=== PATIENT | male | born 1995 | race Caucasian/White ===

== ENCOUNTER 2024-06-10 20:51 | Emergency (ER) | payer OTHER, SELFPAY ==
--- NOTE | ~2024-06-10 | CT_ITS ---
EXAMINATION: CT brain wo con DATE: 06/11/2024 00:02 INDICATION: New onset left-sided headache. TECHNIQUE: Computed tomography (CT) of the head was performed without intravenous contrast. Sagittal and coronal reconstructions were performed. The mA was adjusted according to patient size. Iterative reconstruction technique was employed. The dose-length product was 681.00 mGy-cm. COMPARISON: None FINDINGS: No acute intracranial hemorrhage, acute infarction or abnormal extra axial fluid collection. Ventricl es are normal and symmetric. No mass/mass effect. The orbits, paranasal sinuses and mastoid air cells are normal. IMPRESSION: 1. Normal head CT. Reviewed, dictated and finalized at location A. IMPRESSION: 1. Normal head CT.
[2024-06-10 21:02] VITALS: BP 166/98; PULSE 117; RESP 20; TEMP 37.4; O2SAT 98
[2024-06-11 00:09] VITALS: BP 150/104; PULSE 87; RESP 16; O2SAT 97
[2024-06-11] MEDS: ACETAMINOPHEN 500 MG TABLET 1000 MG PO (00:12)
[2024-06-11] MEDS: diphenhydrAMINE HCl INJ 50 MG/ML VIAL 25 MG IV PUSH (00:13)
[2024-06-11] MEDS: PROCHLORPERAZINE EDISYLATE 10 MG/2 ML VIAL IM (00:13)
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
--- NOTE | 2024-06-11 01:24 | ECG_ITS ---
Test Date: 2024-06-11 01:35:30 Measurements Intervals [place] Rate: 72 P: 69 DC: 143 QRS: 1 QRSD: 94 T: 17 QT: 390 QTc: 429 Interpretive Statements SINUS RHYTHM INCOMPLETE RIGHT BUNDLE BRANCH BLOCK BASELINE ARTIFACT I, III BORDERLINE ECG No previous ECG available for comparison Electronically Signed On 06-11-2024 07:54:46 CDT by Cali Jones D.O.
--- NOTE | 2024-06-11 01:24 | ED.GENADULT ---
HPI - General Adult General Chief complaint: Headache Stated complaint: L GAITAN, hard breathing, heart slowing? Time Seen by Provider: 06/10/24 23:43 History of Present Illness HPI narrative: This is a 28-year-old male presenting with chief of lightheadedness. Patient says work when he developed a left-sided headache that he described as an aching pain his left muslim. He then said that he felt lightheaded and kept staring off into space. He said he felt like his heart was racing very fast. This made him very nervous he came to the ER for evaluation. Patient denies any history of anxiety or panic attacks. He denies any visual changes or loss of consciousness. He does not have any neural deficits, double vision difficulty speaking swallowing or loss of coordination. No fevers chest pain difficulty breathing or abdominal pain. No jaw claudication. Related Data Allergies Allergy/AdvReac Type Severity Reaction Status Date / Time No Known Allergies Allergy Verified 06/10/24 20:52 Exam Narrative: APPEARANCE: No apparent distress. Head: atraumatic. No tenderness over the temporal artery EYES: EOMI, NOSE: Atraumatic NECK: Trachea midline RESPIRATORY: No increased rate of breathing clear to auscultation CARDIOVASCULAR: RRR, no peripheral edema ABDOMINAL: Non-distended soft nontender MUSCULOSKELETAl: No obvious deformities NEURO: Alert. Cranial nerves 2-12 grossly intact. Sensation light touch, motor function cerebellar function intact for 4 extremities. Gait exam was normal. SKIN:: Warm, dry. Normal color PSYCHIATRIC: Normal affect Course Vital Signs Vital signs: Vital Signs Temperature 99.3 F 06/10/24 21:02 Pulse Rate 117 H 06/10/24 21:02 Respiratory Rate 20 06/10/24 21:02 Blood Pressure 166/98 H 06/10/24 21:02 Pulse Oximetry 98 06/10/24 21:02 Oxygen Delivery Room Air 06/10/24 21:02 Temperature 99.3 F 06/10/24 21:02 Pulse Rate 87 06/11/24 00:09 Respiratory Rate 16 06/11/24 00:09 Blood Pressure 150/104 H 06/11/24 00:09 Pulse Oximetry 97 06/11/24 00:09 Oxygen Delivery Room Air 06/10/24 21:02 Medical Decision Making [facility] Narrative Medical decision making narrative: -Course: 28-year-old male presenting with headache and feeling funny. CT brain was obtained which was negative for bleed. His neurologic exam is normal. He was tachycardic in triage but his heart rate has normalized without interention. No clear etiology of patient's symptoms but no apparent life threats. Discussed follow-up with primary care physician and instructions return if he develops any new or worsening symptoms that may help elucidate the cause of his lightheadedness. -DDX includes but is not limited to: Headache, migraine, anxiety, panic attack, dysrhythmia, dehydration Vital Signs Vital Signs: Vital Signs Temperature 99.3 F 06/10/24 21:02 Pulse Rate 117 H 06/10/24 21:02 Respiratory Rate 20 06/10/24 21:02 Blood Pressure 166/98 H 06/10/24 21:02 Pulse Oximetry 98 06/10/24 21:02 Oxygen Delivery Room Air 06/10/24 21:02 Temperature 99.3 F 06/10/24 21:02 Pulse Rate 87 06/11/24 00:09 Respiratory Rate 16 06/11/24 00:09 Blood Pressure 150/104 H 06/11/24 00:09 Pulse Oximetry 97 06/11/24 00:09 Oxygen Delivery Room Air 06/10/24 21:02 Discharge Plan Discharge Clinical Impression: Headache, Dizziness and giddiness Patient Disposition: Home Condition: Stable Instructions: Antibiotic Form, Acute Headache (DC) Additional Instructions: You were seen emergency department for headache. Please use Motrin Tylenol for symptoms. Please follow-up with primary care physician listed below. If you develop any new or worsening symptoms return to the ED for re-evaluation. Patient Language: Hungarian Follow-up/Referrals: PHYSICIAN,HIGH ENERGY FORMING EQUIPMENT OPERATOR [Primary Care Provider] - Camilo Jansen MD [Physician] - 1 Week
[2024-06-11] MEDS: KETOROLAC 15 MG/ML VIAL (*BKC) IV PUSH (01:41)
[2024-06-11 02:26] VITALS: BP 132/86; PULSE 88; RESP 16; O2SAT 100
== END 2024-06-11 02:27 | disposition home or self-care (01) ==
PROVIDERS: Emergency Provider Emergency Medicine
DX: R42 Dizziness and giddiness (principal); R51.9 Headache, unspecified; I45.10 Unspecified right bundle-branch block
CPT/HCPCS: 70450; 93005; 96372; 96374; 99284; A9270; J0780; J1200; J1885

== ENCOUNTER 2024-08-29 12:22 | Emergency (ER) | payer OTHER, SELFPAY ==
--- NOTE | 2024-08-29 12:31 | ED_ITS ---
HPI - Abdominal Pain General Chief Complaint: Abdominal Pain Stated Complaint: Right Side Pain Time Seen by Provider: 08/29/24 12:40 Source: patient, RN notes reviewed and old records reviewed Mode of arrival: ambulatory Limitations: no limitations History of Present Illness HPI narrative: 29-year-old male presents to the [facility] with right upper quadrant abdominal pain that has worsened since Wednesday. Reports it is a dull pain 4-[address] Has had nausea without vomiting. Denies fevers. Patient reports that since his birthday he has had increase ETOH intake. States that his diet consists of Peralta's. Your treatment prior to arrival Onset (ago): day(s) (2) Treatments prior to arrival: other Related Data Home Medications ?Medication ?Instructions ?Recorded ?Confirmed ?Last Taken ?Type No Home Medications 08/29/24 08/29/24 Unknown History Allergies Allergy/AdvReac Type Severity Reaction Status Date / Time No Known Allergies Allergy Verified 08/29/24 12:36 Review of Systems Review of Systems: All systems reviewed & are unremarkable except as noted in HPI and below Constitutional: Constitutional: Reports no additional constitutional complaints Cardiovascular: Cardiovascular: Denies chest pain Respiratory: Respiratory: Reports no additional respiratory complaints, Denies chest congestion, Denies cough and Denies dyspnea Gastrointestinal: Gastrointestinal: Reports as per HPI, Reports abdominal pain (Right upper quadrant), Denies change in bowel habits, Denies diarrhea and Reports nausea Musculoskeletal: Musculoskeletal: Reports no additional musculoskeletal complaints PMFSH Comments At the time of my signature, I reviewed and agree with the nursing past medical, surgical, social, and family history. There is no relevant family history pertinent to the patient complaint. Exam Const: General: cooperative, healthy appearing, no acute distress, well developed, alert, uncomfortable and well nourished Nutritional Appearance: well nourished Orientation/consciousness: patient oriented x3 Limitations: no limitations HENMT: Head: normal to inspection Mouth: Yes Normal oral and palatal mucosa present, Yes lip normal, Yes tongue normal and Yes moist mucous membranes Eyes: General: appearance normal, both eyes and all related structures Alignment and Position: alignment normal Neck: Neck: normal visual inspection, full ROM, no lymphadenopathy and no meningeal signs Chest: Chest palpation & inspection: normal inspection of the chest Resp: Effort & Inspection: normal respiratory effort and able to speak in complete sentences Auscultation: clear to auscultation bilaterally, no crackles, no rales, no rhonchi and no wheezes Cardio: Rate: regular rate GI: GI Palp: Yes abdominal tenderness (Right upper quadrant), Yes Soft to palpation and No Guarding due to palpation present (GI) Auscultation: normal bowel sounds Skin: General skin exam: normal color and no rashes or lesions noted Neuro: General: patient oriented x3, gait normal, moves all extremities and no meningeal signs Cognition (Neuro): normal cognition Speech: normal speech Gait exam (Neuro): Normal gait present Extrem: General: normal to inspection, full ROM, capillary refill normal and normal gait Psych: Appearance: grossly normal and well kempt Mental Status: mental status grossly normal Speech and movement: Normal speech and movement present and Clear speech present Affect: normal affect Attitude: cooperative Course Course Level of Care: Express Care Visit Vital Signs Vital signs: Vital Signs Temperature 97.0 F L 08/29/24 12:33 Pulse Rate 111 H 08/29/24 12:33 Respiratory Rate 20 08/29/24 12:33 Blood Pressure 143/83 H 08/29/24 12:33 Pulse Oximetry 97 08/29/24 12:33 Oxygen Delivery Room Air 08/29/24 12:33 Temperature 97.0 F L 08/29/24 12:33 Pulse Rate 111 H 08/29/24 12:33 Respiratory Rate 20 08/29/24 12:33 Blood Pressure 143/83 H 08/29/24 12:33 Pulse Oximetry 97 08/29/24 12:33 Oxygen Delivery Room Air 08/29/24 12:33 Reviewed Transfer Transfered to: [place] Transportation: Other (POV states that his sister will drive him) Transfer rationale: Patient with right upper quadrant pain, very poor diet consisting of Peralta's, increased alcohol consumption. Sending to rule out cholecystitis Accepting physician: Spoke with Dr. Alexander MDM - Abdominal Pain MDM Narrative Medical decision making narrative: Patient sitting in exam room. Patient is nontoxic but appears uncomfortable. Patient with increasing right upper quadrant pain, nausea sending for higher level of care Transfer instructions reviewed with patient to go directly to the ER. Do not eat or drink until clear by ER provider. States that he will have a sister Dr. him All questions have been answered, and the patient deny any further question Some parts of this dictation were generated by voice recognition software and may contain typographical and/or grammatical inaccuracies. Differential Diagnosis Differential diagnosis: Likely abdominal pain, acute appendicitis, calculus of kidney, constipation, diverticulitis, gastroenteritis, pancreatitis and other (Cholecystitis, cholelithiasis, liver issues) Critical Care Time Critical Care Time Critical Care Time: No Discharge Plan Discharge Clinical Impression: Abdominal pain, acute, right upper quadrant Patient Disposition: Acute Care Hospital Condition: Stable Patient Language: Danish Prescriptions: No Action No Home Medications Follow-up/Referrals: PHYSICIAN,CAGE UNLOADER [Primary Care Provider] -
[2024-08-29 12:33] VITALS: BP 143/83; PULSE 111; RESP 20; TEMP 36.1; O2SAT 97
== END 2024-08-29 12:59 | disposition short-term general hospital (02) ==
LOC: EXPCOLL 12:26
PROVIDERS: Emergency Provider Nurse Practitioner
DX: R10.11 Right upper quadrant pain (principal)
CPT/HCPCS: 99212; G0463

== ENCOUNTER 2024-08-29 13:16 | Emergency (ER) | payer OTHER, SELFPAY ==
--- NOTE | ~2024-08-29 | CT_ITS ---
EXAMINATION: CT abdomen pelvis w con DATE: 08/29/2024 14:35 INDICATION: Right upper quadrant and epigastric pain TECHNIQUE: Computed tomography (CT) of the abdomen and pelvis was performed with 100 mL Omnipaque-350 intravenous contrast. Automated exposure control and iterative reconstruction technique were employe d. The dose-length product was 1222.32 mGy-cm. COMPARISON: None FINDINGS: Lung bases are clear. Heart size is normal. No pericardial or pleural effusion. Mild diffuse hepatic steatosis with focal sparing along the gallbladder fossa. Gallbladder, spleen, pancreas, bilateral ad renal glands and kidneys are normal. Bowels including the appendix are normal. Bladder and prostate a re unremarkable. No free intraperitoneal gas or fluid. No pathologically enlarged abdominal or pelvic lymphadenopathy. Mild lumbar and mild to moderate thoracic spondylosis with Schmorl's nodes as well as chronic appearing mild likely physiologic anterior wedging at L1 and L2. IMPRESSION: 1. No acute intra-abdominal/pelvic process. Reviewed, dictated and finalized at location A.
--- NOTE | ~2024-08-29 | US_ITS ---
Limited ABDOMINAL ULTRASOUND (Doppler ultrasound interrogation techniques used as needed for this exa m.) Ordering provider: Key Monge PA-C History: . ruq pain . Comparison: None. FINDINGS: PANCREAS: Normal echotexture and size. PORTAL VEIN: Hepatopedal flow demonstrated. LIVER: Normal size and increased echogenicity. No focal hepatic lesions or perihepatic fluid collecti ons are identified. BILIARY DUCTS: No intra or extrahepatic biliary dilation. Common bile duct measures 3.6 mm in diamete r which is normal for patient's age. GALLBLADDER: Normal. No stones, sludge, gallbladder wall thickening or pericholecystic fluid. Wall th ickness is 2.8 mm. Negative sonographic Lora's sign. FREE FLUID: None visualized within the upper abdomen. IMPRESSION: Fat infiltration of the liver. Otherwise, normal limited abdominal ultrasound. Reviewed, dictated and finalized at location A.
[2024-08-29 13:19] VITALS: BP 157/100; PULSE 104; RESP 16; O2SAT 98
[2024-08-29 13:50] LABS: Hematocrit 47.5 % (42.0-52.0); Hemoglobin 15.8 g/dL (14.0-18.0); Immature Granulocyte Percent A 0.7 % (0-0.5); Lymphocytes Absolute Auto 2.70 K/mm3 (0.9-3.2); Mean Corpuscular HGB Conc 33.3 g/dl (32-36); Mean Corpuscular Hemoglobin 29.1 pg (26-34); Mean Corpuscular Volume 87.5 fl (80-100); Nucleated Red Blood Cells Absolute Auto 0.000 K/mm3 (0.0-0.012); Nucleated Red Blood Cells Perc 0.0 % (0.0-0.2); Platelet Count Result 252 k/mm3 (150-375); Red Blood Count 5.43 M/mm3 (4.6-6.20); White Blood Count 12.9 K/mm3 (4.5-10.0)
[2024-08-29 13:52] LABS: Add Urine Microscopic? NO; Appearance Urine Clear (Clear); Glucose Urine UA Negative (Negative); Leukocyte Esterase Ur Negative LEU/UL (Negative); Nitrate Urine Negative (Negative); Specific Grav Ur 1.023 (1.001-1.035)
[2024-08-29 14:13] LABS: Alanine Aminotransferase 42 U/L (6-50); Albumin Level 4.4 g/dL (3.5-5.1); Alkaline Phosphatase 83 U/L (38-126); Anion Gap 10 mmol/L (4-12); Aspartate Amino Transferase 35 U/L (17-59); Bilirubin,Total 0.4 mg/dL (0.2-1.3); Blood Urea Nitrogen 11 mg/dL (9-20); Calcium 9.6 mg/dL (8.4-10.2); Carbon Dioxide 24 mmol/L (22-30); Chloride 106 mmol/L (98-107); Estimated CRCL calculation 139 ml/min; Estimated Glomerular Filt Rate > 60; Glucose 101 mg/dL (65-110); Lipase 45 U/L (23-300); Potassium 4.1 mmol/L (3.4-5.0); Sodium 140 mmol/L (137-145); Total Protein 7.9 g/dL (6.3-8.2)
--- NOTE | 2024-08-29 15:05 | ED.ABDPAIN ---
HPI - Abdominal Pain General Chief Complaint: Abdominal Pain Stated Complaint: Abdominal pain, nausea Time Seen by Provider: 08/29/24 13:34 Source: patient Mode of arrival: ambulatory Limitations: no limitations History of Present Illness HPI narrative: Patient is a 29-year-old male who presents the ED with report of right upper abdominal pain. Patient reports having pain throughout his right upper abdomen intermittently since Wednesday. Denies significant aggravating or relieving factors to the pain. Denies pain being worse with eating. Reports intermittent nausea, denies vomiting, diarrhea, constipation, fevers, shortness of breath. Has never had history of similar pain. Denies issues with gallbladder pancreas in the past. Does note that he has been a daily drinker recently, up to 12 drinks per day. Denies history of withdrawal symptoms or seizures. Related Data Allergies Allergy/AdvReac Type Severity Reaction Status Date / Time No Known Allergies Allergy Verified 08/29/24 15:30 Review of Systems Review of Systems: All systems reviewed & are unremarkable except as noted in HPI. All systems reviewed & are unremarkable except as noted in HPI and below Exam Narrative: GENERAL: Well appearing, obese with BMI of 36.4, non-toxic, in no acute distress. HEAD: Normocephalic, atraumatic. RESPIRATORY: Airway patent, respirations nonlabored. Clear to auscultation bilaterally, no rales, rhonchi, wheezing. CARDIOVASCULAR: Regular rate and rhythm without murmurs, rubs, or gallops. ABDOMINAL: Soft, mild TTP in epigastric region/epigastric region, nondistended. Normoactive BS. MUSCULOSKELETAL: Moves all extremities. No gross deformities. SKIN: Warm, dry, normal color. NEURO: A&O X3. Speech clear. Cranial nerves II-XII grossly intact. Steady gait. No ataxic movements. PSYCHIATRIC: Appropriate mood and affect. Normal interaction. Course Vital Signs Vital signs: Vital Signs Pulse Rate 104 H 08/29/24 13:19 Respiratory Rate 16 08/29/24 13:19 Blood Pressure 157/100 H 08/29/24 13:19 Pulse Oximetry 98 08/29/24 13:19 Pulse Rate 104 H 08/29/24 13:19 Respiratory Rate 16 08/29/24 13:19 Blood Pressure 157/100 H 08/29/24 13:19 Pulse Oximetry 98 08/29/24 13:19 MDM - Abdominal Pain MDM Narrative Medical decision making narrative: Patient presented to ED with several day history of right upper quadrant abdominal pain. History of recent daily alcohol use. Vital signs are stable upon arrival. Patient in no acute distress. Denies chest pains/shortness of breath. Denies drinking anything today. Cbc with minimally elevated white blood cell count of 12.9. CMP is completely unremarkable. Normal LFTs and lipase. UA is clear. CT scan of abdomen/pelvis was obtained and unremarkable. Right upper quadrant ultrasound was obtained and also unremarkable. Discussed lab and imaging findings, overall reassuring workup with patient. Discussed possibility of gastritis. Will start patient on PPI. Advised to limit alcohol use, discussed further dietary modifications. Will refer to GI for further evaluation as needed. Patient otherwise safe for discharge home at this time. Given strict return precautions. He is in agreement with plan. Discharged in stable condition. Medical Records Attestation: I reviewed the patient's medical records. Lab Data Attestation: I reviewed the patient's lab results. 08/29/24 13:43 08/29/24 13:42 Labs: Lab Results 08/29/24 08/29/24 Range/Units 13:42 13:43 WBC 12.9 H (4.5-10.0) K/mm3 RBC 5.43 (4.6-6.20) M/mm3 Hgb 15.8 (14.0-18.0) g/dL Hct 47.5 (42.0-52.0) % MCV 87.5 (80-100) fl MCH 29.1 (26-34) pg MCHC 33.3 (32-36) g/dl RDW 12.0 (11.5-14.5) % Plt Count 252 (150-375) k/mm3 MPV 10.6 H (7.4-10.4) fl Immature Gran % (Auto) 0.7 H (0-0.5) % Neut % (Auto) 70.3 (45.5-73.1) % Lymph % (Auto) 20.9 (18.3-44.2) % [place] % (Auto) 6.2 (2.6-8.5) % Eos % (Auto) 1.3 (0-4.4) % Baso % (Auto) 0.6 (0.2-1.2) % Lymph # (Auto) 2.70 (0.9-3.2) K/mm3 [place] # (Auto) 0.8 H (0.1-0.6) K/mm3 Eos # (Auto) 0.2 (0-0.3) K/mm3 Baso # (Auto) 0.1 (0.0-0.1) K/mm3 Abs Immat Gran (auto) 0.09 H (0.00-0.031) K/mm3 Absolute Neuts (auto) 9.1 H (1.3-6.7) K/mm3 Absolute Nucleated RBC 0.000 (0.0-0.012) K/mm3 Nucleated RBC % 0.0 (0.0-0.2) % Sodium 140 (137-145) mmol/L Potassium 4.1 (3.4-5.0) mmol/L Chloride 106 (98-107) mmol/L Carbon Dioxide 24 (22-30) mmol/L Anion Gap 10 (4-12) mmol/L BUN 11 (9-20) mg/dL Creatinine 0.92 (0.7-1.3) mg/dL Estim Creat Clear Calc 139 ml/min Estimated GFR > 60 (59 - ) Glucose 101 (65-110) mg/dL Calcium 9.6 (8.4-10.2) mg/dL Total Bilirubin 0.4 (0.2-1.3) mg/dL AST 35 (17-59) U/L ALT 42 (6-50) U/L Alkaline Phosphatase 83 (38-126) U/L Total Protein 7.9 (6.3-8.2) g/dL Albumin 4.4 (3.5-5.1) g/dL Lipase 45 (23-300) U/L Urine Color Yellow (Yellow) Urine Appearance Clear (Clear) Urine pH 5.5 (5.0-9.0) Ur Specific [place] 1.023 (1.001-1.035) Urine Protein Negative (Negative) mg/dL Urine Glucose (UA) Negative (Negative) mg/dL Urine Ketones Trace H (Negative) mg/dL Ur Blood (Man) Negative (Negative) Urine Nitrate Negative (Negative) Urine Bilirubin Negative (Negative) Urine Urobilinogen 1.0 (<2.0) mg/dL Leukocyte Esterase Rfl Negative (Negative) CULLEN/UL Imaging Data Attestation: I personally reviewed and interpreted this imaging study as follows: Radiologist's impression: ITS Impressions Abdomen/Pelvis CT 08/29/24 14:47 IMPRESSION: 1. No acute intra-abdominal/pelvic process. Abdomen Ultrasound 08/29/24 15:39 IMPRESSION: Fat infiltration of the liver. Otherwise, normal limited abdominal ultrasound. Discharge Plan Discharge Clinical Impression: Abdominal pain, right upper quadrant Gastritis Qualifiers: Gastritis type: unspecified gastritis Chronicity: acute Gastritis bleeding: without bleeding Qualified Code(s): K29.00 - Acute gastritis without bleeding Patient Disposition: Home Condition: Stable Instructions: Antibiotic Form, Gastritis (ED), Biliary Colic (ED), Diet for Stomach Ulcers and Gastritis (ED) Additional Instructions: Recommend taking Protonix daily for acid reflux depression. Limit alcohol use. Limit foods that are very greasy, spicy, acidic, fatty. Avoid eating food late at night or laying flat directly after eating. Follow-up with your primary care doctor and/or GI for further evaluation. Return to the ED if you experience worsening or severe pain, unable to keep down food or drink, chest pain, difficulty breathing, persistent fevers, or any other symptoms of concern. Patient Language: French Prescriptions: New pantoprazole [Protonix] 40 mg tablet,delayed release (DR/EC) 40 mg PO HS 28 Days Qty: 28 0RF Follow-up/Referrals: Joyce Crews DO [Physician] - (PRIMARY CARE) PHYSICIAN,ENTERTAINMENT MUSICIAN [Primary Care Provider] - Yoan Ayon MD [Physician] - (GI) Stand Alone Forms: Work/School Release IP Time of Disposition: 16:23
[2024-08-29] MEDS: FAMOTIDINE 20 MG/2 ML VIAL IV PUSH (15:20)
== END 2024-08-29 16:36 | disposition home or self-care (01) ==
PROVIDERS: Emergency Provider Physician Assistant
DX: K29.00 Acute gastritis without bleeding (principal); K76.0 Fatty (change of) liver, not elsewhere classified
CPT/HCPCS: 36415; 74177; 76705; 80053; 81003; 83690; 85025; 96374; 99284; Q9967

== ENCOUNTER 2024-11-08 21:00 | Inpatient (IN) | payer OTHER, SELFPAY ==
--- NOTE | ~2024-11-08 | CT_ITS ---
EXAMINATION: CT abdomen pelvis w con DATE: 11/08/2024 23:47 INDICATION: Perirectal abscess. TECHNIQUE: Computed tomography (CT) of the abdomen and pelvis was performed with 100 mL Omnipaque 350 intravenous contrast. Automated exposure control and iterative reconstruction technique were employed. The dose-length product was 1601.80 mGy-cm. COMPARISON: CT abdomen and pelvis 08/29/2024 FINDINGS: The visualized portions of the lung bases demonstrate mild atelectasis. No pleural effusion. The heart size is normal. No pericardial effusion. There is diffuse hepatic steatosis. The gallbladder, spleen, pancreas, adrenal glands, and kidneys are normal. There are no dilated loops of bowel. The appendix is normal. There are no pathologically enlarged lymph nodes. There is no free intraperitoneal fluid. In the superior intergluteal cleft, there is a 3.1 cm mass with central low attenuation measuring 1.7 x 1.5 x 2.2 cm and surrounding fat stranding. There is mild thoracic and lumbar spondylosis. IMPRESSION: 1. Subcutaneous mass in the superior aspect of the intergluteal cleft, consistent with phlegmon versus early abscess. Reviewed, dictated and finalized at location E. IMPRESSION: 1. Subcutaneous mass in the superior aspect of the intergluteal cleft, consiste nt with phlegmon versus early abscess.
[2024-11-08 21:06] VITALS: BP 139/79; PULSE 149; RESP 20; TEMP 36.7; O2SAT 97
[2024-11-08 21:56] VITALS: PULSE 118; RESP 18; O2SAT 95
--- NOTE | 2024-11-08 22:01 | ECG_ITS ---
Test Date: 2024-11-08 22:21:24 Measurements Intervals [place] Rate: 115 P: 32 DE: 141 QRS: 10 QRSD: 88 T: 10 QT: 303 QTc: 420 Interpretive Statements SINUS TACHYCARDIA POSSIBLE RIGHT VENTRICULAR CONDUCTION DELAY [RSR (QR) IN V1/V2] ABNORMAL RHYTHM ECG Electronically Signed On 11-09-2024 06:38:09 CDT by Gerardo Sandoval M.D.
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
[2024-11-08] MEDS: SODIUM CHLORIDE 0.9% IV 1,000 ML 999 ML IV CONT (22:14)
[2024-11-08] MEDS: HYDROmorphone HCL INJ (*CRX) 1 MG/ML SYR IV PUSH ×2 (22:15→23:30)
[2024-11-08 22:20] LABS: Hematocrit 41.7 % (42.0-52.0); Hemoglobin 13.8 g/dL (14.0-18.0); Immature Granulocyte Percent A 0.6 % (0-0.5); Lymphocytes Absolute Auto 2.69 K/mm3 (0.9-3.2); Mean Corpuscular HGB Conc 33.1 g/dl (32-36); Mean Corpuscular Hemoglobin 28.8 pg (26-34); Mean Corpuscular Volume 86.9 fl (80-100); Nucleated Red Blood Cells Absolute Auto 0.000 K/mm3 (0.0-0.012); Nucleated Red Blood Cells Perc 0.0 % (0.0-0.2); Platelet Count Result 256 k/mm3 (150-375); Red Blood Count 4.80 M/mm3 (4.6-6.20); White Blood Count 18.5 K/mm3 (4.5-10.0)
[2024-11-08 22:25] VITALS: BP 146/87; PULSE 115; RESP 19; O2SAT 94
[2024-11-08 22:31] LABS: INR 0.9; Prothrombin Time 12.6 Seconds (11.1-14.7)
[2024-11-08 22:32] LABS: Partial Thromboplastin Time 28.9 Seconds (22.3-36.8)
[2024-11-08 23:30] LABS: Alanine Aminotransferase 31 U/L (6-50); Albumin Level 4.0 g/dL (3.5-5.1); Alkaline Phosphatase 96 U/L (38-126); Anion Gap 9 mmol/L (4-12); Aspartate Amino Transferase 32 U/L (17-59); Bilirubin,Total 0.4 mg/dL (0.2-1.3); Blood Urea Nitrogen 13 mg/dL (9-20); CRP 4.1 mg/dL (<1.0); Calcium 8.8 mg/dL (8.4-10.2); Carbon Dioxide 23 mmol/L (22-30); Chloride 103 mmol/L (98-107); Estimated Glomerular Filt Rate > 60; Glucose 113 mg/dL (65-110); Potassium 4.1 mmol/L (3.4-5.0); Sodium 135 mmol/L (137-145); Total Protein 7.5 g/dL (6.3-8.2)
[2024-11-09] VITALS (15 sets, daily range): BP systolic 98–145; BP diastolic 53–86; PULSE 90–103; RESP 14–20; TEMP 36–37.1; O2SAT 93–99; BMI 33.1
[2024-11-09 00:17] LABS: Add Urine Microscopic? NO; Appearance Urine Clear (Clear); Glucose Urine UA Negative (Negative); Leukocyte Esterase Ur Negative LEU/UL (Negative); Nitrate Urine Negative (Negative); Specific Grav Ur 1.018 (1.001-1.035)
[2024-11-09] MEDS: SODIUM CHLORIDE 0.9% IV 1,000 ML 999 ML IV CONT ×2 (02:42→04:11)
[2024-11-09] MEDS: FOLIC ACID 1 MG/0.2 ML INJ IV PUSH (04:08)
[2024-11-09] MEDS: THIAMINE HCL 200 MG/2 ML VIAL 100 MG IV PUSH (04:09)
[2024-11-09] MEDS: HYDROmorphone HCL INJ (*CRX) 1 MG/ML SYR IV PUSH ×4 (04:23→19:26)
[2024-11-09] MEDS: metroNIDAZOLE 500 MG/ISO 100ML 500 MG/100 ML BAG 100 MG IVPB ×3 (05:06→21:18)
--- NOTE | 2024-11-09 06:03 | ADMGEN ---
This patient, Pratik Delgado, was admitted to [facility] Surg Room 315-01. Patient/family oriented to hospital policies and general routines including ID bracelet, bed and alarms, visiting hours, pain management, procedures, bathroom and other care routines, personal items, smoking policy, room service/diet, and visiting hours. Information on how to activate the Rapid Response Team has been discussed. Patient/Family are encouraged to report perceived risks to care and to ask questions if they do not understand what they are told or what they should do.
[2024-11-09] MEDS: CIPROFLOXACIN 400 MG/D5W 200ML 200 ML 200 MG IVPB ×2 (07:02→18:24)
--- NOTE | 2024-11-09 07:47 | P.HP_ITS ---
H&P: HPI History of Present Illness Date/Time: 11/09/24 07:47 Chief Complaint: Wound/Laceration Narrative: Pratik Delgado is a 29 year old male with a past medical history of pulmonary embolism who presents to the hospital for inflammation the gluteal cleft. Patient states Wednesday of this week, he started experiencing pain with palpation, swelling and redness to the upper aspect of gluteal cleft. He denies any major injuries to this region, but states that he has bumped it quite a few times over the past week. Denies any history of pilonidal cysts. Denies any fevers, chills, nausea/vomiting, chest pain, shortness a breath, abdominal pain, or urinary/bowel changes, however he does state that he feels warm but never took his temperature at home. Upon arrival to ED, patient was febrile and tachycardic but since admission, has not had an documented fevers or tachycardia. He also denies any numbness/tingling down either lower extremity, urinary/bowel incontinence or saddle anesthesia. I&D was attempted in the emergency department unsuccessfully. General surgery consulted upon admission for pilonidal cyst/abscess. ED workup: 36.7C, 149 HR, 20RR, 130/79, 97% on RA WBC 18.5, HGB 13.8, HCT 41.7. No major electrolyte abnormalities. CRP 4.1 UA: Low suspicion for infection Abdomen/pelvis CT: Subcutaneous mass in the superior aspect of the intergluteal cleft, consistent with phlegmon versus early abscess. Review of Systems Review of Systems: All systems reviewed & are unremarkable except as noted in HPI and below PMFSH Past Medical History Medical History History of pulmonary embolism Surgical History Surgical History History of surgery on lower extremity Social History Social History Smoking packs per day: 1 Smoking cigarettes per day: 20.0 Smoking status: Current every day smoker Tobacco type: cigarettes Alcohol intake: current Drinks per week: 40 Substance use: current Substance use type: marijuana Lack of Transportation: YES Lack of Food: Never True Current Housing: I Have Housing Concerned About Future Housing: No Difficulty Paying Gas/Electric Bills: No Difficulty Paying for Meds: YES Currently Unemployed: No Education: High School Diploma/GED Difficulty w/ Childcare or Family Care: No Spiritual care concerns: No Meds Home Medications and Allergies Home Medications ?Medication ?Instructions ?Recorded ?Confirmed ?Type pantoprazole 40 mg tablet,delayed 40 mg PO HS 4 weeks #28 tabs 08/29/24 11/09/24 Rx release (Protonix) Allergies Allergy/AdvReac Type Severity Reaction Status Date / Time No Known Allergies Allergy Verified 11/09/24 14:20 Vital Signs Vital Signs - 24 hr 11/08/24 21:06 11/08/24 21:56 11/08/24 22:25 Temperature 98.0 F Pulse Rate 149 H 118 H 115 H Respiratory Rate 20 18 19 Blood Pressure 139/79 146/87 H Pulse Oximetry 97 95 94 Oxygen Delivery Room Air 11/09/24 00:58 11/09/24 02:52 11/09/24 05:48 Temperature Pulse Rate 96 93 93 Respiratory Rate 19 20 20 Blood Pressure 145/80 H 118/62 118/62 Pulse Oximetry 94 96 96 Oxygen Delivery Exam Narrative: Gen - ill appearing male in no acute respiratory distress who is nontoxic- appearing lying semi recumbent in bed HEENT - normocephalic. Atraumatic. Pupils equal round and reactive. Extraocular motions intact. Sclera clear and anicteric. Nares patent. Oropharynx was clear. No facial asymmetry. Neck - neck was supple. No dominant adenopathy, thyromegaly or masses. Chest - lungs are clear to auscultation bilaterally. No wheezes or crackles. CV - heart was regular rate and rhythm. S1-S2. No murmurs gallops or rubs. Abd - abdomen was soft. Nontender. Nondistended. Positive bowel sounds. No organomegaly or masses. Ext - no clubbing, cyanosis or edema. 2+ DP pulses bilaterally. Neuro - patient is alert and oriented x4. Strength is 5/5 in both upper and lower extremities. Cranial nerves 2-12 are intact. Speech is clear. Psych - normal mood and affect. Patient is pleasant and cooperative. Skin - Large abscess in pilonidal region, erythematous and tender to palpation with induration, possible fluctuance near center. warm and dry. H&P: Results Labs Labs: Short CBC 11/08/24 Range/Units 22:07 WBC 18.5 H (4.5-10.0) K/mm3 Hgb 13.8 L (14.0-18.0) g/dL Hct 41.7 L (42.0-52.0) % Plt Count 256 (150-375) k/mm3 BMP 11/08/24 22:07 Sodium 135 L Potassium 4.1 Chloride 103 Carbon Dioxide 23 BUN 13 Creatinine 1.06 Glucose 113 H Calcium 8.8 Liver Function 11/08/24 Range/Units 22:07 Total Bilirubin 0.4 (0.2-1.3) mg/dL AST 32 (17-59) U/L ALT 31 (6-50) U/L Alkaline Phosphatase 96 (38-126) U/L Albumin 4.0 (3.5-5.1) g/dL Urine 11/09/24 Range/Units 00:10 Urine Color Yellow (Yellow) Urine Appearance Clear (Clear) Urine pH 6.5 (5.0-9.0) Ur Specific [place] 1.018 (1.001-1.035) Urine Protein Negative (Negative) mg/dL Urine Glucose (UA) Negative (Negative) mg/dL Assessment and Plan Assessment and plan (1) Sepsis: Code(s): A41.9 - Sepsis, unspecified organism Status: Acute Assessment and Plan: * Meets SIRS criteria: Fever, tachycardia, suspected infection, leukocytosis * lactic acid: 1.1 * suspected source: Pilonidal cyst/abscess * blood cultures drawn on 11/08, pending * UA: Not indicative of infection * Urine culture not obtained * Abdomen/pelvis CT: A subcutaneous mass in the superior aspect of the intergluteal cleft, consistent with phlegmon versus early abscess * Initially started on ciprofloxacin and metronidazole, also was started on vancomycin but discontinued (2) Pilonidal cyst with abscess: Code(s): L05.01 - Pilonidal cyst with abscess Status: Acute Assessment and Plan: * See above * Started on Tuesday 11/07 after bumped it several times on various surroundings * Abdomen/pelvis CT: A subcutaneous mass in the superior aspect of the intergluteal cleft, consistent with phlegmon versus early abscess * Difficult to examine given patient's inability to allow for proper examination * Unable to tolerate bedside I and D in the emergency department * General surgery consulted * Incision and drainage of pilonidal cyst in the OR with sedation * Continue IV antibiotics preoperatively and keep NPO until surgery * Maintenance fluids while NPO * Will likely require packing of wound postoperatively Quality VTE Prophylaxis VTE prophylaxis: mechanical ordered
[2024-11-09 08:57] LABS: Alanine Aminotransferase 25 U/L (6-50); Albumin Level 3.5 g/dL (3.5-5.1); Alkaline Phosphatase 91 U/L (38-126); Anion Gap 7 mmol/L (4-12); Aspartate Amino Transferase 27 U/L (17-59); Bilirubin,Total 0.5 mg/dL (0.2-1.3); Blood Urea Nitrogen 13 mg/dL (9-20); Calcium 8.1 mg/dL (8.4-10.2); Carbon Dioxide 21 mmol/L (22-30); Chloride 105 mmol/L (98-107); Estimated CRCL calculation 135 ml/min; Estimated Glomerular Filt Rate > 60; Glucose 105 mg/dL (65-110); Potassium 4.1 mmol/L (3.4-5.0); Sodium 133 mmol/L (137-145); Total Protein 6.7 g/dL (6.3-8.2)
[2024-11-09 08:58] LABS: Hematocrit 41.2 % (42.0-52.0); Hemoglobin 13.2 g/dL (14.0-18.0); Immature Granulocyte Percent A 0.6 % (0-0.5); Lymphocytes Absolute Auto 2.18 K/mm3 (0.9-3.2); Mean Corpuscular HGB Conc 32.0 g/dl (32-36); Mean Corpuscular Hemoglobin 28.2 pg (26-34); Mean Corpuscular Volume 88.0 fl (80-100); Nucleated Red Blood Cells Absolute Auto 0.000 K/mm3 (0.0-0.012); Nucleated Red Blood Cells Perc 0.0 % (0.0-0.2); Platelet Count Result 222 k/mm3 (150-375); Red Blood Count 4.68 M/mm3 (4.6-6.20); White Blood Count 15.9 K/mm3 (4.5-10.0)
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
[2024-11-09] MEDS: LACTATED RINGERS 1,000 ML 100 ML IV CONT (10:31)
[2024-11-09] MEDS: LACTATED RINGERS 1,000 ML 30 ML IV CONT (14:10)
--- NOTE | 2024-11-09 14:29 | P.PNAN_ITS ---
Anes - Initial Pre Proc Eval Procedure: Operation Date: 11/09/24 15:00 Proposed Procedures p Incision and Drainage Pilonidal Cyst - Murray Segovia MD Date/Time: 11/09/24 14:29 Surgeon: Jasmyne Agudelo DO Pre Op Diagnosis: Gluteal abscess Patient Data Age: 29 Gender: M Height: 1.83 m Weight: 110.9 kg Last Vital Signs Temp 98.8 F 11/09/24 13:45 Pulse 103 H 11/09/24 13:45 Resp 18 11/09/24 13:45 BP 128/86 11/09/24 13:45 Pulse Ox 97 11/09/24 13:45 O2 Del Method Room Air 11/09/24 13:45 Allergies Allergy/AdvReac Type Severity Reaction Status Date / Time No Known Allergies Allergy Verified 11/09/24 14:20 Home Medications ?Medication ?Instructions ?Recorded ?Confirmed ?Type pantoprazole 40 mg tablet,delayed 40 mg PO HS 4 weeks #28 tabs 08/29/24 11/09/24 Rx release (Protonix) Laboratory Tests 11/08/24 11/09/24 11/09/24 22:07 00:10 04:48 WBC 18.5 H K/mm3 (4.5-10.0) RBC 4.80 M/mm3 (4.6-6.20) Hgb 13.8 L g/dL (14.0-18.0) Hct 41.7 L % (42.0-52.0) MCV 86.9 fl (80-100) MCH 28.8 pg (26-34) MCHC 33.1 g/dl (32-36) RDW 11.9 % (11.5-14.5) Plt Count 256 k/mm3 (150-375) MPV 10.3 fl (7.4-10.4) Immature Gran % (Auto) 0.6 H % (0-0.5) Neut % (Auto) 76.7 H % (45.5-73.1) Lymph % (Auto) 14.5 L % (18.3-44.2) [place] % (Auto) 6.8 % (2.6-8.5) Eos % (Auto) 0.9 % (0-4.4) Baso % (Auto) 0.5 % (0.2-1.2) Lymph # (Auto) 2.69 K/mm3 (0.9-3.2) [place] # (Auto) 1.3 H K/mm3 (0.1-0.6) Eos # (Auto) 0.2 K/mm3 (0-0.3) Baso # (Auto) 0.1 K/mm3 (0.0-0.1) Abs Immat Gran (auto) 0.11 H K/mm3 (0.00-0.031) Absolute Neuts (auto) 14.2 H K/mm3 (1.3-6.7) Absolute Nucleated RBC 0.000 K/mm3 (0.0-0.012) Nucleated RBC % 0.0 % (0.0-0.2) PT 12.6 Seconds (11.1-14.7) INR 0.9 APTT 28.9 Seconds (22.3-36.8) Sodium 135 L mmol/L 133 L mmol/L (137-145) (137-145) Potassium 4.1 mmol/L 4.1 mmol/L (3.4-5.0) (3.4-5.0) Chloride 103 mmol/L 105 mmol/L (98-107) (98-107) Carbon Dioxide 23 mmol/L 21 L mmol/L (22-30) (22-30) Anion Gap 9 mmol/L 7 mmol/L (4-12) (4-12) BUN 13 mg/dL 13 mg/dL (9-20) (9-20) Creatinine 1.06 mg/dL 0.90 mg/dL (0.7-1.3) (0.7-1.3) Estim Creat Clear Calc Not Reportable 135 ml/min Estimated GFR > 60 > 60 (59 - ) (59 - ) Glucose 113 H mg/dL 105 mg/dL (65-110) (65-110) Lactic Acid 1.1 mmol/L (0.7-2.0) Calcium 8.8 mg/dL 8.1 L mg/dL (8.4-10.2) (8.4-10.2) Total Bilirubin 0.4 mg/dL 0.5 mg/dL (0.2-1.3) (0.2-1.3) AST 32 U/L 27 U/L (17-59) (17-59) ALT 31 U/L 25 U/L (6-50) (6-50) Alkaline Phosphatase 96 U/L 91 U/L (38-126) (38-126) C-Reactive Protein 4.1 H mg/dL (<1.0) Total Protein 7.5 g/dL 6.7 g/dL (6.3-8.2) (6.3-8.2) Albumin 4.0 g/dL 3.5 g/dL (3.5-5.1) (3.5-5.1) Urine Color Yellow (Yellow) Urine Appearance Clear (Clear) Urine pH 6.5 (5.0-9.0) Ur Specific [place] 1.018 (1.001-1.035) Urine Protein Negative mg/dL (Negative) Urine Glucose (UA) Negative mg/dL (Negative) Urine Ketones Negative mg/dL (Negative) Ur Blood (Man) Negative (Negative) Urine Nitrate Negative (Negative) Urine Bilirubin Negative (Negative) Urine Urobilinogen 1.0 mg/dL (<2.0) Leukocyte Esterase Rfl Negative CULLEN/UL (Negative) Ethyl Alcohol < 10 mg/dL (<10) 11/09/24 08:35 WBC 15.9 H K/mm3 (4.5-10.0) RBC 4.68 M/mm3 (4.6-6.20) Hgb 13.2 L g/dL (14.0-18.0) Hct 41.2 L % (42.0-52.0) MCV 88.0 fl (80-100) MCH 28.2 pg (26-34) MCHC 32.0 g/dl (32-36) RDW 11.9 % (11.5-14.5) Plt Count 222 k/mm3 (150-375) MPV 10.4 fl (7.4-10.4) Immature Gran % (Auto) 0.6 H % (0-0.5) Neut % (Auto) 76.1 H % (45.5-73.1) Lymph % (Auto) 13.7 L % (18.3-44.2) [place] % (Auto) 8.3 % (2.6-8.5) Eos % (Auto) 0.9 % (0-4.4) Baso % (Auto) 0.4 % (0.2-1.2) Lymph # (Auto) 2.18 K/mm3 (0.9-3.2) [place] # (Auto) 1.3 H K/mm3 (0.1-0.6) Eos # (Auto) 0.2 K/mm3 (0-0.3) Baso # (Auto) 0.1 K/mm3 (0.0-0.1) Abs Immat Gran (auto) 0.10 H K/mm3 (0.00-0.031) Absolute Neuts (auto) 12.1 H K/mm3 (1.3-6.7) Absolute Nucleated RBC 0.000 K/mm3 (0.0-0.012) Nucleated RBC % 0.0 % (0.0-0.2) PT INR APTT Sodium Potassium Chloride Carbon Dioxide Anion Gap BUN Creatinine Estim Creat Clear Calc Estimated GFR Glucose Lactic Acid Calcium Total Bilirubin AST ALT Alkaline Phosphatase C-Reactive Protein Total Protein Albumin Urine Color Urine Appearance Urine pH Ur Specific [place] Urine Protein Urine Glucose (UA) Urine Ketones Ur Blood (Man) Urine Nitrate Urine Bilirubin Urine Urobilinogen Leukocyte Esterase Rfl Ethyl Alcohol Patient hx anesthesia problems: none Family hx anesthesia problems: none Results Review: All pre-operative results and documents have been reviewed as part of the pre- operative evaluation. [facility] Past Medical History Medical History History of pulmonary embolism Surgical History Surgical History History of surgery on lower extremity Social History Social History Smoking packs per day: 1 Smoking cigarettes per day: 20.0 Smoking status: Current every day smoker Tobacco type: cigarettes Alcohol intake: current Drinks per week: 40 Substance use: current Substance use type: marijuana Lack of Transportation: YES Lack of Food: Never True Current Housing: I Have Housing Concerned About Future Housing: No Difficulty Paying Gas/Electric Bills: No Difficulty Paying for Meds: YES Currently Unemployed: No Education: High School Diploma/GED Difficulty w/ Childcare or Family Care: No Spiritual care concerns: No Anes - Eval Final PreProcedure Day of Procedure 11/09/24 14:29 Patient weight: obese Heart: regular rate and rhythm Lungs: clear to auscultation Airway: Mallampati scale class II Neurological: alert and oriented Last oral intake: >/= 8 hours ASA classification: III Emergent: no Anesthetic plan: proceed Anesthesia type and monitoring: general ETT and standard monitoring Results Review: All pre-operative results and documents have been reviewed as part of the pre- operative evaluation. Informed Consent: The patient's anesthetic plan and its attendant risks and benefits were discussed with the patient/family/POA. Questions were solicited and answers provided to the satisfaction of the patient/family/POA.
--- NOTE | 2024-11-09 15:00 | WPDHPUPDATE1 ---
History and Physical Update Update Date/Time: 11/09/24 15:00 History and Physical has been reviewed, including an updated exam of the patient. There are NO changes in the patient's condition. Risks, benefits, and alternatives have been discussed and questions answered. Patient agrees to proceed with procedure.
[2024-11-09] MEDS: LIDO 1%/EPINEPHRINE 1:100,000 20 ML VIAL 15 ML INFILTRATE (15:37)
--- NOTE | 2024-11-09 16:08 | W.PM.PROC2 ---
Procedure Note - Detailed Date of Procedure 11/09/24 Pre-op Diagnosis Pilonidal cyst abscess Post-op Diagnosis Same Procedure Performed Incision and drainage of pilonidal cyst abscess Surgeon Murray Segovia MD Anesthesia General Indications Patient is a 29-year-old white male presented to the emergency room with complaints of several day history of worsening pain in the upper midline gluteal cleft region. White blood cell count was elevated around 18,000 and he was mildly febrile. CT scan abdomen pelvis was performed showing a 2 to 3 cm abscess over the tip of the coccyx in the upper midline gluteal cleft region. He appeared to have an infected pilonidal cyst. An attempt was made to try to drain it in the emergency room under local anesthetic by the emergency room providers. This was unsuccessful as the patient cannot tolerate the drainage under local anesthetic. He is being brought in for now to incise and drain the pilonidal cyst abscess under a general anesthetic. Findings In the upper midline gluteal cleft there was a fluctuant area in the midline. After making incision longitudinally in the cleft approximately 20cc of pus drained from a 3cm abscess. Digital exploration of my finger revealed no loculations. Cultures of the abscess cavity were obtained and sent to microbiology Description of Procedure After informed consent was obtained patient brought to the operating room was placed supine on the operating table. He was then placed under general LMA anesthesia. We then turned him onto the right lateral decubitus position on operating table taking care to make sure all the pressure points well padded and he was well secured in that position on the table. The medial buttock, lower back, and midline gluteal cleft region was then shaved and then prepped draped usual sterile fashion. In a fluctuant area just at the top portion of the upper midline gluteal cleft I made a longitudinal incision with a #11 scalpel. The length of the incision was approximately 3cm. Once I incised into the abscess cavity approximate 20cc of bloody purulent fluid drained from the abscess. I then placed my index finger into the abscess cavity and digitally explored the cavity and did not tend to track in any direction by any significant distance. No loculations were noted. I then obtained a culture stick and sent to microbiology for anaerobic, aerobic, and Gram stain. I then irrigated out the abscess cavity with about 2 in 50cc of sterile saline solution. Hemostasis on the skin edges was then achieved electrocautery. I then packed the wound and abscess cavity tightly with quarter-inch iodoform gauze. Approximate 3 yd of gauze was used. I then injected [id number] of 1% lidocaine mixed with 0.5% Marcaine with epinephrine around the wound for postoperative pain relief. There was then cleaned and then sterile dressing was applied. The patient tolerated the procedure well no complications. All sponges, needles, and instrument counts were correct at the end procedure. EBL was _25__cc. The patient was awakened and taken to recovery in stable and satisfactory condition. Implants None Estimated Blood Loss 25 Urine Output 400 Drains No Packing Yes (Quarter-inch iodoform gauze pilonidal cyst abscess) Pathology Other (Culture of abscess cavity sent to microbiology for aerobic, anaerobic, and Gram stain.) Complications No immediate complications Condition Stable Disposition PACU [facility] Billing Surgery - Charge Forward: Surgery Billing
[2024-11-09] MEDS: NICOTINE (*PBKC) 4 MG GUM PO (20:10)
[2024-11-09] MEDS: HYDROcodone/acetaminophen (*CRX) 5-325 MG TABLET 1 TAB PO (21:18)
[2024-11-10 00:15] VITALS: BP 133/70; PULSE 88; RESP 14; TEMP 36.4; O2SAT 98
[2024-11-10] MEDS: HYDROmorphone HCL INJ (*CRX) 1 MG/ML SYR IV PUSH ×7 (00:40→21:58)
[2024-11-10] MEDS: NICOTINE (*PBKC) 4 MG GUM PO ×6 (00:41→18:19)
[2024-11-10 04:00] VITALS: BP 112/70; PULSE 88; RESP 16; TEMP 36.4; O2SAT 97
[2024-11-10] MEDS: metroNIDAZOLE 500 MG/ISO 100ML 500 MG/100 ML BAG 100 MG IVPB ×3 (05:33→22:09)
[2024-11-10 06:15] LABS: Hematocrit 42.5 % (42.0-52.0); Hemoglobin 13.7 g/dL (14.0-18.0); Immature Granulocyte Percent A 0.8 % (0-0.5); Lymphocytes Absolute Auto 1.33 K/mm3 (0.9-3.2); Mean Corpuscular HGB Conc 32.2 g/dl (32-36); Mean Corpuscular Hemoglobin 28.8 pg (26-34); Mean Corpuscular Volume 89.5 fl (80-100); Nucleated Red Blood Cells Absolute Auto 0.000 K/mm3 (0.0-0.012); Nucleated Red Blood Cells Perc 0.0 % (0.0-0.2); Platelet Count Result 246 k/mm3 (150-375); Red Blood Count 4.75 M/mm3 (4.6-6.20); White Blood Count 16.9 K/mm3 (4.5-10.0)
[2024-11-10] MEDS: CIPROFLOXACIN 400 MG/D5W 200ML 200 ML 200 MG IVPB ×2 (06:38→18:10)
[2024-11-10 06:40] LABS: Alanine Aminotransferase 26 U/L (6-50); Albumin Level 3.9 g/dL (3.5-5.1); Alkaline Phosphatase 95 U/L (38-126); Anion Gap 5 mmol/L (4-12); Aspartate Amino Transferase 26 U/L (17-59); Bilirubin,Total 0.3 mg/dL (0.2-1.3); Blood Urea Nitrogen 14 mg/dL (9-20); Calcium 8.7 mg/dL (8.4-10.2); Carbon Dioxide 26 mmol/L (22-30); Chloride 104 mmol/L (98-107); Estimated CRCL calculation 141 ml/min; Estimated Glomerular Filt Rate > 60; Glucose 121 mg/dL (65-110); Potassium 4.8 mmol/L (3.4-5.0); Sodium 135 mmol/L (137-145); Total Protein 7.5 g/dL (6.3-8.2)
--- NOTE | 2024-11-10 07:41 | P.PNIM_ITS ---
Progress Note: A&P Assessment and Plan (1) Sepsis: Code(s): A41.9 - Sepsis, unspecified organism Status: Acute Assessment and Plan: * Meets SIRS criteria: Fever, tachycardia, suspected infection, leukocytosis * lactic acid: 1.1 * suspected source: Pilonidal cyst/abscess * blood cultures drawn on 11/08, pending * UA: Not indicative of infection * Urine culture not obtained * Abdomen/pelvis CT: A subcutaneous mass in the superior aspect of the intergluteal cleft, consistent with phlegmon versus early abscess * Initially started on ciprofloxacin and metronidazole, also was started on vancomycin but discontinued * Continue IV antibiotics * discuss with ID pharmacist regarding discharge medications * 11/10: Leukocytosis slight worse today, likely reactive from surgery (2) Pilonidal cyst with abscess: Code(s): L05.01 - Pilonidal cyst with abscess Status: Acute Assessment and Plan: * See above * Started on Tuesday 11/07 after bumped it several times on various surroundings * Abdomen/pelvis CT: A subcutaneous mass in the superior aspect of the intergluteal cleft, consistent with phlegmon versus early abscess * Difficult to examine given patient's inability to allow for proper examination * Unable to tolerate bedside I and D in the emergency department * General surgery consulted * POD 11/09 I&D pilonidal cyst abscess * Keep dressing clean, dry * Packing to be removed today per Gen surg * Wound culture pending Subjective Date/time seen: 11/10/24 07:41 Interval history: 29 year old male with a past medical history of pulmonary embolism who presents to the hospital for inflammation the gluteal cleft. Patient states Wednesday of this week, he started experiencing pain with palpation, swelling and redness to the upper aspect of gluteal cleft. 11/10/2024 Patient sitting uncomfortably in bed at time of exam. POD 11/09 pilonidal abscess drainage. Pt endorses significant amount of pain at surgical site area since surgery. Remains afebrile, however leukocytosis slightly worse today than yesterday, likely reactive from surgery. Wound culture obtained, pending. Will have dressing changed/replaced by surgery today, continue prn pain control. Review of Systems Review of Systems: All systems reviewed & are unremarkable except as noted in HPI and below Exam Narrative: Gen - ill appearing male in no acute respiratory distress who is nontoxic- appearing lying semi recumbent in bed HEENT - normocephalic. Atraumatic. Pupils equal round and reactive. Extraocular motions intact. Sclera clear and anicteric. Nares patent. Oropharynx was clear. No facial asymmetry. Neck - neck was supple. No dominant adenopathy, thyromegaly or masses. Chest - lungs are clear to auscultation bilaterally. No wheezes or crackles. CV - heart was regular rate and rhythm. S1-S2. No murmurs gallops or rubs. Abd - abdomen was soft. Nontender. Nondistended. Positive bowel sounds. No organomegaly or masses. Ext - no clubbing, cyanosis or edema. 2+ DP pulses bilaterally. Neuro - patient is alert and oriented x4. Strength is 5/5 in both upper and lower extremities. Cranial nerves 2-12 are intact. Speech is clear. Psych - normal mood and affect. Patient is pleasant and cooperative. Skin - Large abscess in pilonidal region drained, dressing clean and dry, still very tender to palpation. Dressing to be replaced by general surgery Objective Data Vital Signs Vital Signs: Vital Signs - 24 hr 11/09/24 13:45 11/09/24 15:48 11/09/24 16:00 Temperature 98.8 F 97.8 F Pulse Rate 103 H 95 96 Respiratory Rate 18 16 16 Blood Pressure 128/86 98/53 L 102/54 L Pulse Oximetry 97 95 95 Oxygen Delivery Room Air Simple Face Mask Simple Face Mask Oxygen Flow Rate 12 12 11/09/24 16:15 11/09/24 16:30 11/09/24 16:45 Temperature Pulse Rate 93 103 H 101 H Respiratory Rate 16 18 18 Blood Pressure 109/60 105/76 131/80 Pulse Oximetry 96 99 93 Oxygen Delivery Simple Face Mask Simple Face Mask Room Air Oxygen Flow Rate 12 12 11/09/24 17:00 11/09/24 17:15 11/09/24 18:40 Temperature 96.8 F L Pulse Rate 94 91 90 Respiratory Rate 16 16 17 Blood Pressure 124/73 126/70 119/71 Pulse Oximetry 94 94 94 Oxygen Delivery Room Air Nasal Cannula Oxygen Flow Rate 2 11/09/24 18:45 11/09/24 20:00 11/09/24 20:25 Temperature 97.1 F L Pulse Rate 101 H 92 Respiratory Rate 14 Blood Pressure 125/70 135/83 Pulse Oximetry 95 Oxygen Delivery Room Air Oxygen Flow Rate 11/09/24 21:47 11/10/24 00:15 11/10/24 04:00 Temperature 97.6 F 97.6 F Pulse Rate 88 88 Respiratory Rate 14 16 Blood Pressure 133/70 112/70 Pulse Oximetry 95 98 97 Oxygen Delivery Room Air Oxygen Flow Rate Intake/Output Intake/Output: Intake & Output 11/07/24 11/08/24 11/09/24 11/10/24 23:59 23:59 23:59 23:59 Intake Total 1000 1340 590 Output Total 2450 350 Balance 1000 -1110 240 Meds/Results Medications: Active Medications Generic Name Dose Route Start Last Admin Trade Name Freq PRN Reason Stop Dose Admin Acetaminophen 650 mg 11/09/24 03:57 Acetaminophen 325 Mg Tablet PO Q4H PRN Mild Pain (1-3) or Fever Hydrocodone Bitart/Acetaminophen 1 tab 11/09/24 03:57 11/09/24 21:18 Hydrocodone/Acetaminophen (*Crx) 5-325 Mg Tablet PO 1 tab Q4H PRN Administration Pain Rated 4-6 Folic Acid 1 mg 11/09/24 03:00 11/09/24 04:08 Folic Acid 1 Mg/0.2 Ml Inj IV PUSH 1 mg DAILY NUHA Administration Hydromorphone HCl 1 mg 11/09/24 07:51 11/10/24 04:51 Hydromorphone Hcl Inj (*Crx) 1 Mg/Ml Syr IV PUSH 1 mg Q3H PRN Administration Pain Rated 7-10 Ciprofloxacin/Dextrose 200 mls @ 200 mls/hr 11/09/24 06:00 11/10/24 06:38 Cipro 400 Mg/D5w 200 Ml IVPB 200 mls/hr Q12H NUHA Administration Metronidazole 500 mg in 100 mls @ 100 mls/hr 11/09/24 11:00 11/10/24 05:33 Flagyl 500 Mg/Iso Soln 100 Ml IVPB 100 mls/hr Q8HR NUHA Administration Lactated Ringer's 1,000 mls @ 30 mls/hr 11/09/24 14:30 11/09/24 17:42 Lr - Lactated Ringers Iv IV CONT Not Given .Q24H NUHA Nicotine Polacrilex 4 mg 11/09/24 18:47 11/10/24 06:37 Nicotine (*Pbkc) 4 Mg Gum PO 4 mg PRN PRN Administration Nicotine Cravings Ondansetron HCl 4 mg 11/09/24 03:57 Ondansetron Inj 4 Mg/2 Ml Vial IV PUSH Q4H PRN Nausea Radiology Results: ITS Impressions Abdomen/Pelvis CT 11/09/24 08:26 IMPRESSION: 1. Subcutaneous mass in the superior aspect of the intergluteal cleft, consistent with phlegmon versus early abscess. Labs Labs: Laboratory Results - last 24 hr 11/09/24 11/09/24 11/10/24 04:48 08:35 05:32 WBC 15.9 H 16.9 H RBC 4.68 4.75 Hgb 13.2 L 13.7 L Hct 41.2 L 42.5 MCV 88.0 89.5 MCH 28.2 28.8 MCHC 32.0 32.2 RDW 11.9 11.8 Plt Count 222 246 MPV 10.4 10.4 Immature Gran % (Auto) 0.6 H 0.8 H Neut % (Auto) 76.1 H 85.2 H Lymph % (Auto) 13.7 L 7.9 L [place] % (Auto) 8.3 5.8 Eos % (Auto) 0.9 0.0 Baso % (Auto) 0.4 0.3 Lymph # (Auto) 2.18 1.33 [place] # (Auto) 1.3 H 1.0 H Eos # (Auto) 0.2 0.0 Baso # (Auto) 0.1 0.1 Abs Immat Gran (auto) 0.10 H 0.14 H Absolute Neuts (auto) 12.1 H 14.4 H Absolute Nucleated RBC 0.000 0.000 Nucleated RBC % 0.0 0.0 Sodium 133 L 135 L Potassium 4.1 4.8 Chloride 105 104 Carbon Dioxide 21 L 26 Anion Gap 7 5 BUN 13 14 Creatinine 0.90 0.86 Estim Creat Clear Calc 135 141 Estimated GFR > 60 > 60 Glucose 105 121 H Calcium 8.1 L 8.7 Total Bilirubin 0.5 0.3 AST 27 26 ALT 25 26 Alkaline Phosphatase 91 95 Total Protein 6.7 7.5 Albumin 3.5 3.9 Quality VTE Prophylaxis VTE prophylaxis: mechanical ordered
[2024-11-10 08:21] VITALS: BP 128/78; PULSE 80; RESP 18; TEMP 36.5; O2SAT 96
[2024-11-10] MEDS: HYDROcodone/acetaminophen (*CRX) 5-325 MG TABLET 1 TAB PO (08:49)
[2024-11-10] MEDS: FOLIC ACID 1 MG/0.2 ML INJ IV PUSH (08:49)
--- NOTE | 2024-11-10 10:13 | P.PNAN_ITS ---
Anes - Prog Note Post-Op Date/Time: 11/10/24 10:13 Cardiovascular status: normal Respiratory status: normal Airway patency: baseline Mental status: baseline Post-Op hydration status: normal Vital Signs: Last Vital Signs Temp 36.5 C 11/10/24 08:21 Pulse 80 11/10/24 08:21 Resp 18 11/10/24 08:21 BP 128/78 11/10/24 08:21 Pulse Ox 96 11/10/24 08:21 O2 Del Method Room Air 11/09/24 21:47 O2 Flow Rate 2 11/09/24 17:15 Pain Score (VAS): 0 I/O: Intake & Output 11/09/24 11/10/24 11/10/24 23:59 07:59 15:59 Intake Total 1040 790 240 Output Total 1150 350 400 Balance -110 440 -160 Laboratory Tests 11/10/24 05:32 11/10/24 05:32 11/10/24 05:32 WBC 16.9 H RBC 4.75 Hgb 13.7 L Hct 42.5 MCV 89.5 MCH 28.8 MCHC 32.2 RDW 11.8 Plt Count 246 MPV 10.4 Immature Gran % (Auto) 0.8 H Neut % (Auto) 85.2 H Lymph % (Auto) 7.9 L [place] % (Auto) 5.8 Eos % (Auto) 0.0 Baso % (Auto) 0.3 Lymph # (Auto) 1.33 [place] # (Auto) 1.0 H Eos # (Auto) 0.0 Baso # (Auto) 0.1 Abs Immat Gran (auto) 0.14 H Absolute Neuts (auto) 14.4 H Absolute Nucleated RBC 0.000 Nucleated RBC % 0.0 Sodium 135 L Potassium 4.8 Chloride 104 Carbon Dioxide 26 Anion Gap 5 BUN 14 Creatinine 0.86 Estim Creat Clear Calc 141 Estimated GFR > 60 Glucose 121 H Calcium 8.7 Total Bilirubin 0.3 AST 26 ALT 26 Alkaline Phosphatase 95 Total Protein 7.5 Albumin 3.9 Post-procedural complaints: none Patient Feedback: Patient satisfied with anesthetic care.
--- NOTE | 2024-11-10 10:17 | P.PNAN_ITS ---
Anes - Prog Note Post-Op Date/Time: 11/10/24 10:17 Cardiovascular status: normal Respiratory status: normal Airway patency: baseline Mental status: baseline Post-Op hydration status: normal Vital Signs: Last Vital Signs Temp 36.5 C 11/10/24 08:21 Pulse 80 11/10/24 08:21 Resp 18 11/10/24 08:21 BP 128/78 11/10/24 08:21 Pulse Ox 96 11/10/24 08:21 O2 Del Method Room Air 11/09/24 21:47 O2 Flow Rate 2 11/09/24 17:15 Pain Score (VAS): 0 I/O: Intake & Output 11/09/24 11/10/24 11/10/24 23:59 07:59 15:59 Intake Total 1040 790 240 Output Total 1150 350 400 Balance -110 440 -160 Laboratory Tests 11/10/24 05:32 11/10/24 05:32 11/10/24 05:32 WBC 16.9 H RBC 4.75 Hgb 13.7 L Hct 42.5 MCV 89.5 MCH 28.8 MCHC 32.2 RDW 11.8 Plt Count 246 MPV 10.4 Immature Gran % (Auto) 0.8 H Neut % (Auto) 85.2 H Lymph % (Auto) 7.9 L [place] % (Auto) 5.8 Eos % (Auto) 0.0 Baso % (Auto) 0.3 Lymph # (Auto) 1.33 [place] # (Auto) 1.0 H Eos # (Auto) 0.0 Baso # (Auto) 0.1 Abs Immat Gran (auto) 0.14 H Absolute Neuts (auto) 14.4 H Absolute Nucleated RBC 0.000 Nucleated RBC % 0.0 Sodium 135 L Potassium 4.8 Chloride 104 Carbon Dioxide 26 Anion Gap 5 BUN 14 Creatinine 0.86 Estim Creat Clear Calc 141 Estimated GFR > 60 Glucose 121 H Calcium 8.7 Total Bilirubin 0.3 AST 26 ALT 26 Alkaline Phosphatase 95 Total Protein 7.5 Albumin 3.9 Post-procedural complaints: none Patient Feedback: Patient satisfied with anesthetic care.
[2024-11-10 11:55] VITALS: BP 114/67; PULSE 93; RESP 16; TEMP 36.4; O2SAT 97
[2024-11-10] MEDS: oxyCODONE/ACETAMINOPHEN (*CRX) 5-325 MG TABLET 1 TABLET PO ×2 (12:36→20:18)
--- NOTE | 2024-11-10 15:23 | PM.PNGS ---
Progress Note: A&P Assessment and Plan (1) Pilonidal cyst with abscess: Code(s): L05.01 - Pilonidal cyst with abscess Status: Acute Assessment and Plan: Pod 1 status post incision and drainage of pilonidal cyst abscess. Patient complains of buttocks pain at rest. He notes minimal relief with Dilaudid and [place]. [place] was switched to Percocet. Patient states that he felt this worked a little better. Packing was changed today. Patient was in severe pain. He states he is unsure how he will be able to have someone else do this for him at home when he is experiencing this much pain. Patient will stay in hospital overnight for pain management and management of leukocytosis. White blood cell count still elevated at 16,900. Afebrile. No new areas of fluctuance or purulent drainage appreciated on exam. Continue IV antibiotics. We will continue to monitor with serial abdominal exams and labs. Continue daily wound care. Plan I have discussed the patient's case and plan of care with Dr. Segovia. Subjective Subjective Date/Time Seen: 11/10/24 15:23 Post Op day: 1 Patient reports: still having pain and afebrile Interval history: Patient complains of severe pain to his buttock area. Also states that he was nauseous early in the morning, but he never vomited. WBC remains elevated now at 16.9. Exam Skin: Wounds: wounds noted Other: Longitudinal wound over sacrum roughly 3 cm long. The cavity probes to about 4 cm deep. Packing was removed and repacked today. Exam slightly limited due to patient's significant pain. No surrounding redness or erythema. No purulent drainage. Objective Data Vital Signs Vital Signs: Vital Signs - 24 hr 11/09/24 15:48 11/09/24 16:00 11/09/24 16:15 Temperature 97.8 F Pulse Rate 95 96 93 Respiratory Rate 16 16 16 Blood Pressure 98/53 L 102/54 L 109/60 Pulse Oximetry 95 95 96 Oxygen Delivery Simple Face Mask Simple Face Mask Simple Face Mask Oxygen Flow Rate 12 12 12 11/09/24 16:30 11/09/24 16:45 11/09/24 17:00 Temperature Pulse Rate 103 H 101 H 94 Respiratory Rate 18 18 16 Blood Pressure 105/76 131/80 124/73 Pulse Oximetry 99 93 94 Oxygen Delivery Simple Face Mask Room Air Room Air Oxygen Flow Rate 12 11/09/24 17:15 11/09/24 18:40 11/09/24 18:45 Temperature 96.8 F L Pulse Rate 91 90 101 H Respiratory Rate 16 17 Blood Pressure 126/70 119/71 125/70 Pulse Oximetry 94 94 Oxygen Delivery Nasal Cannula Oxygen Flow Rate 2 11/09/24 20:00 11/09/24 20:25 11/09/24 21:47 Temperature 97.1 F L Pulse Rate 92 Respiratory Rate 14 Blood Pressure 135/83 Pulse Oximetry 95 95 Oxygen Delivery Room Air Room Air Oxygen Flow Rate 11/10/24 00:15 11/10/24 04:00 11/10/24 08:21 Temperature 97.6 F 97.6 F 97.7 F Pulse Rate 88 88 80 Respiratory Rate 14 16 18 Blood Pressure 133/70 112/70 128/78 Pulse Oximetry 98 97 96 Oxygen Delivery Oxygen Flow Rate 11/10/24 11:55 Temperature 97.6 F Pulse Rate 93 Respiratory Rate 16 Blood Pressure 114/67 Pulse Oximetry 97 Oxygen Delivery Oxygen Flow Rate Intake/Output Intake/Output: Intake & Output 11/07/24 11/08/24 11/09/24 11/10/24 23:59 23:59 23:59 23:59 Intake Total 1000 1340 1370 Output Total 2450 1150 Balance 1000 -1110 220 Meds/Results Medications: Active Medications Generic Name Dose Route Start Last Admin Trade Name Freq PRN Reason Stop Dose Admin Acetaminophen 650 mg 11/09/24 03:57 Acetaminophen 325 Mg Tablet PO Q4H PRN Mild Pain (1-3) or Fever Folic Acid 1 mg 11/09/24 03:00 11/10/24 08:49 Folic Acid 1 Mg/0.2 Ml Inj IV PUSH 1 mg DAILY NUHA Administration Hydromorphone HCl 1 mg 11/09/24 07:51 11/10/24 14:24 Hydromorphone Hcl Inj (*Crx) 1 Mg/Ml Syr IV PUSH 1 mg Q3H PRN Administration Pain Rated 7-10 if NPO Ciprofloxacin/Dextrose 200 mls @ 200 mls/hr 11/09/24 06:00 11/10/24 07:38 Cipro 400 Mg/D5w 200 Ml IVPB Infused Q12H NUHA Infusion Metronidazole 500 mg in 100 mls @ 100 mls/hr 11/09/24 11:00 11/10/24 14:25 Flagyl 500 Mg/Iso Soln 100 Ml IVPB 100 mls/hr Q8HR NUHA Administration Lactated Ringer's 1,000 mls @ 30 mls/hr 11/09/24 14:30 11/09/24 17:42 Lr - Lactated Ringers Iv IV CONT Not Given .Q24H NUHA Nicotine Polacrilex 4 mg 11/09/24 18:47 11/10/24 14:32 Nicotine (*Pbkc) 4 Mg Gum PO 4 mg PRN PRN Administration Nicotine Cravings Ondansetron HCl 4 mg 11/09/24 03:57 Ondansetron Inj 4 Mg/2 Ml Vial IV PUSH Q4H PRN Nausea Oxycodone/Acetaminophen 1 tablet 11/10/24 12:03 11/10/24 12:36 Oxycodone/Acetaminophen (*Crx) 5-325 Mg Tablet PO 1 tablet Q6H PRN Administration Pain Rated 7-10 Radiology Results: ITS Impressions Abdomen/Pelvis CT 11/09/24 08:26 IMPRESSION: 1. Subcutaneous mass in the superior aspect of the intergluteal cleft, consistent with phlegmon versus early abscess. Labs Labs: Laboratory Results - last 24 hr 11/10/24 05:32 WBC 16.9 H RBC 4.75 Hgb 13.7 L Hct 42.5 MCV 89.5 MCH 28.8 MCHC 32.2 RDW 11.8 Plt Count 246 MPV 10.4 Immature Gran % (Auto) 0.8 H Neut % (Auto) 85.2 H Lymph % (Auto) 7.9 L [place] % (Auto) 5.8 Eos % (Auto) 0.0 Baso % (Auto) 0.3 Lymph # (Auto) 1.33 [place] # (Auto) 1.0 H Eos # (Auto) 0.0 Baso # (Auto) 0.1 Abs Immat Gran (auto) 0.14 H Absolute Neuts (auto) 14.4 H Absolute Nucleated RBC 0.000 Nucleated RBC % 0.0 Sodium 135 L Potassium 4.8 Chloride 104 Carbon Dioxide 26 Anion Gap 5 BUN 14 Creatinine 0.86 Estim Creat Clear Calc 141 Estimated GFR > 60 Glucose 121 H Calcium 8.7 Total Bilirubin 0.3 AST 26 ALT 26 Alkaline Phosphatase 95 Total Protein 7.5 Albumin 3.9
[2024-11-10] MEDS: ONDANSETRON INJ 4 MG/2 ML VIAL IV PUSH (15:40)
[2024-11-10 16:25] VITALS: BP 135/75; PULSE 84; RESP 16; TEMP 36.6; O2SAT 94
[2024-11-10 22:21] VITALS: BP 135/75; PULSE 83; RESP 18; TEMP 36.1; O2SAT 95
[2024-11-11 05:30] VITALS: BP 123/68; PULSE 84; RESP 18; TEMP 36.5; O2SAT 97
[2024-11-11] MEDS: oxyCODONE/ACETAMINOPHEN (*CRX) 5-325 MG TABLET 1 TABLET PO (05:59)
[2024-11-11 06:22] LABS: Hematocrit 42.2 % (42.0-52.0); Hemoglobin 13.2 g/dL (14.0-18.0); Immature Granulocyte Percent A 0.8 % (0-0.5); Lymphocytes Absolute Auto 2.78 K/mm3 (0.9-3.2); Mean Corpuscular HGB Conc 31.3 g/dl (32-36); Mean Corpuscular Hemoglobin 28.9 pg (26-34); Mean Corpuscular Volume 92.5 fl (80-100); Nucleated Red Blood Cells Absolute Auto 0.000 K/mm3 (0.0-0.012); Nucleated Red Blood Cells Perc 0.0 % (0.0-0.2); Platelet Count Result 253 k/mm3 (150-375); Red Blood Count 4.56 M/mm3 (4.6-6.20); White Blood Count 11.9 K/mm3 (4.5-10.0)
[2024-11-11] MEDS: CIPROFLOXACIN 400 MG/D5W 200ML 200 ML 200 MG IVPB ×2 (06:23→17:30)
[2024-11-11] MEDS: metroNIDAZOLE 500 MG/ISO 100ML 500 MG/100 ML BAG 100 MG IVPB ×3 (06:24→21:12)
[2024-11-11 06:40] LABS: Alanine Aminotransferase 26 U/L (6-50); Albumin Level 3.6 g/dL (3.5-5.1); Alkaline Phosphatase 88 U/L (38-126); Anion Gap 7 mmol/L (4-12); Aspartate Amino Transferase 25 U/L (17-59); Bilirubin,Total 0.1 mg/dL (0.2-1.3); Blood Urea Nitrogen 19 mg/dL (9-20); Calcium 8.6 mg/dL (8.4-10.2); Carbon Dioxide 25 mmol/L (22-30); Chloride 109 mmol/L (98-107); Estimated CRCL calculation 120 ml/min; Estimated Glomerular Filt Rate > 60; Glucose 103 mg/dL (65-110); Potassium 4.1 mmol/L (3.4-5.0); Sodium 141 mmol/L (137-145); Total Protein 7.0 g/dL (6.3-8.2)
[2024-11-11] MEDS: FOLIC ACID 1 MG/0.2 ML INJ IV PUSH (08:54)
--- NOTE | 2024-11-11 10:28 | P.PN_ITS ---
Progress Note: A&P Assessment and Plan (1) Pilonidal cyst with abscess: Code(s): L05.01 - Pilonidal cyst with abscess Status: Acute Assessment and Plan: Postop day 3 after incision drainage of pilonidal abscess. Blood count is down at 11,900 today. Cultures showed Gram-positive cocci on the Gram stain. A robotic and anaerobic cultures are still pending. Continue daily dressing changes with iodoform packing. Await culture results. We will see if we can arrange for home health dressing changes home since he states no one at home will do his dressing changes. Decrease the interval between his oxycodone to q.4 hours. Subjective Date/time seen: 11/11/24 10:28 Interval history: Patient still complains of pain in the incision for the drainage of the pilonidal abscess. No fever. White blood cell count is down to 11,000 today. Was 16,000 yesterday. Packing is being changed daily. Exam Skin: Other: Upper midline gluteal cleft incision minimal drainage. No bleeding. Packing in place with minimal induration or erythema. Moderately tender to palpation. Objective Data Vital Signs Vital Signs: Vital Signs - 24 hr 11/10/24 11:55 11/10/24 16:25 11/10/24 20:00 Temperature 36.4 C 36.6 C Pulse Rate 93 84 Respiratory Rate 16 16 Blood Pressure 114/67 135/75 Pulse Oximetry 97 94 Oxygen Delivery Room Air 11/10/24 22:21 11/11/24 05:30 Temperature 36.1 C L 36.5 C Pulse Rate 83 84 Respiratory Rate 18 18 Blood Pressure 135/75 123/68 Pulse Oximetry 95 97 Oxygen Delivery Intake/Output Intake/Output: Intake & Output 11/08/24 11/09/24 11/10/24 11/11/24 23:59 23:59 23:59 23:59 Intake Total 1000 1340 3540 350 Output Total 2450 1150 Balance 1000 -1110 2390 350 Meds/Results Medications: Active Medications Generic Name Dose Route Start Last Admin Trade Name Freq PRN Reason Stop Dose Admin Acetaminophen 650 mg 11/09/24 03:57 Acetaminophen 325 Mg Tablet PO Q4H PRN Mild Pain (1-3) or Fever Folic Acid 1 mg 11/09/24 03:00 11/11/24 08:54 Folic Acid 1 Mg/0.2 Ml Inj IV PUSH 1 mg DAILY NUHA Administration Hydromorphone HCl 1 mg 11/09/24 07:51 11/10/24 21:58 Hydromorphone Hcl Inj (*Crx) 1 Mg/Ml Syr IV PUSH 1 mg Q3H PRN Administration Pain Rated 7-10 if NPO Ciprofloxacin/Dextrose 200 mls @ 200 mls/hr 11/09/24 06:00 11/11/24 06:23 Cipro 400 Mg/D5w 200 Ml IVPB 200 mls/hr Q12H NUHA Administration Metronidazole 500 mg in 100 mls @ 100 mls/hr 11/09/24 11:00 11/11/24 06:24 Flagyl 500 Mg/Iso Soln 100 Ml IVPB 100 mls/hr Q8HR NUHA Administration Lactated Ringer's 1,000 mls @ 30 mls/hr 11/09/24 14:30 11/10/24 18:36 Lr - Lactated Ringers Iv IV CONT Not Given .Q24H NUHA Nicotine Polacrilex 4 mg 11/09/24 18:47 11/10/24 18:19 Nicotine (*Pbkc) 4 Mg Gum PO 4 mg PRN PRN Administration Nicotine Cravings Ondansetron HCl 4 mg 11/09/24 03:57 11/10/24 15:40 Ondansetron Inj 4 Mg/2 Ml Vial IV PUSH 4 mg Q4H PRN Administration Nausea Oxycodone/Acetaminophen 1 tablet 11/10/24 12:03 11/11/24 05:59 Oxycodone/Acetaminophen (*Crx) 5-325 Mg Tablet PO 1 tablet Q6H PRN Administration Pain Rated 7-10 Radiology Results: ITS Impressions Abdomen/Pelvis CT 11/09/24 08:26 IMPRESSION: 1. Subcutaneous mass in the superior aspect of the intergluteal cleft, consistent with phlegmon versus early abscess. Labs Labs: Laboratory Results - last 24 hr 11/11/24 06:08 WBC 11.9 H RBC 4.56 L Hgb 13.2 L Hct 42.2 MCV 92.5 MCH 28.9 MCHC 31.3 L RDW 12.0 Plt Count 253 MPV 10.8 H Immature Gran % (Auto) 0.8 H Neut % (Auto) 67.6 Lymph % (Auto) 23.3 [place] % (Auto) 7.0 Eos % (Auto) 0.6 Baso % (Auto) 0.7 Lymph # (Auto) 2.78 [place] # (Auto) 0.8 H Eos # (Auto) 0.1 Baso # (Auto) 0.1 Abs Immat Gran (auto) 0.10 H Absolute Neuts (auto) 8.1 H Absolute Nucleated RBC 0.000 Nucleated RBC % 0.0 Sodium 141 Potassium 4.1 Chloride 109 H Carbon Dioxide 25 Anion Gap 7 BUN 19 Creatinine 1.02 Estim Creat Clear Calc 120 Estimated GFR > 60 Glucose 103 Calcium 8.6 Total Bilirubin 0.1 L AST 25 ALT 26 Alkaline Phosphatase 88 Total Protein 7.0 Albumin 3.6
[2024-11-11] MEDS: HYDROmorphone HCL INJ (*CRX) 1 MG/ML SYR IV PUSH ×2 (11:37→21:05)
--- NOTE | 2024-11-11 12:17 | P.PNIM_ITS ---
Progress Note: A&P Assessment and Plan (1) Sepsis: Code(s): A41.9 - Sepsis, unspecified organism Status: Acute Assessment and Plan: * Meets SIRS criteria: Fever, tachycardia, suspected infection, leukocytosis * lactic acid: 1.1 * suspected source: Pilonidal cyst/abscess * blood cultures drawn on 11/08, pending * UA: Not indicative of infection * Urine culture not obtained * Abdomen/pelvis CT: A subcutaneous mass in the superior aspect of the intergluteal cleft, consistent with phlegmon versus early abscess * Initially started on ciprofloxacin and metronidazole, also was started on vancomycin but discontinued * Continue IV antibiotics * discuss with ID pharmacist regarding discharge medications * 11/11: WBC 16.9 -> 11.9 * Wound culture - gram + * Blood cultures NGTD (2) Pilonidal cyst with abscess: Code(s): L05.01 - Pilonidal cyst with abscess Status: Acute Assessment and Plan: * See above * Started on Tuesday 11/07 after bumped it several times on various surroundings * Abdomen/pelvis CT: A subcutaneous mass in the superior aspect of the intergluteal cleft, consistent with phlegmon versus early abscess * Difficult to examine given patient's inability to allow for proper examination * Unable to tolerate bedside I and D in the emergency department * General surgery consulted * POD 11/09 I&D pilonidal cyst abscess * Keep dressing clean, dry * Packing changed daily * Will need possible home health nurse for dressing changes at home Subjective Date/time seen: 11/11/24 12:17 Interval history: 29 year old male with a past medical history of pulmonary embolism who presents to the hospital for inflammation the gluteal cleft. Patient states Wednesday of this week, he started experiencing pain with palpation, swelling and redness to the upper aspect of gluteal cleft. 11/11/2024 Patient sitting uncomfortably in bed at time of exam. POD 11/09 pilonidal abscess drainage. Still endorsing pain at rest at surgical site. Dressing has been changed per general surgery. WBC downtrending, to 11.9 today. Blood cultures NGTD, wound culture shows gram + cocci. Patient does not have anyone to come change his dressing at home - will work with [facility] regarding possible home health nurse for dressing changes. Review of Systems Review of Systems: All systems reviewed & are unremarkable except as noted in HPI and below Exam Narrative: Gen - ill appearing male in no acute respiratory distress who is nontoxic- appearing lying semi recumbent in bed HEENT - normocephalic. Atraumatic. Pupils equal round and reactive. Extraocular motions intact. Sclera clear and anicteric. Nares patent. Oropharynx was clear. No facial asymmetry. Neck - neck was supple. No dominant adenopathy, thyromegaly or masses. Chest - lungs are clear to auscultation bilaterally. No wheezes or crackles. CV - heart was regular rate and rhythm. S1-S2. No murmurs gallops or rubs. Abd - abdomen was soft. Nontender. Nondistended. Positive bowel sounds. No organomegaly or masses. Ext - no clubbing, cyanosis or edema. 2+ DP pulses bilaterally. Neuro - patient is alert and oriented x4. Strength is 5/5 in both upper and lower extremities. Cranial nerves 2-12 are intact. Speech is clear. Psych - normal mood and affect. Patient is pleasant and cooperative. Skin - Large abscess in pilonidal region drained, dressing clean and dry, still very tender to palpation. Packing in place with minimal induration or erythema Objective Data Vital Signs Vital Signs: Vital Signs - 24 hr 11/10/24 16:25 11/10/24 20:00 11/10/24 22:21 Temperature 97.9 F 97 F L Pulse Rate 84 83 Respiratory Rate 16 18 Blood Pressure 135/75 135/75 Pulse Oximetry 94 95 Oxygen Delivery Room Air 11/11/24 05:30 11/11/24 08:00 Temperature 97.7 F Pulse Rate 84 Respiratory Rate 18 Blood Pressure 123/68 Pulse Oximetry 97 Oxygen Delivery Room Air Intake/Output Intake/Output: Intake & Output 11/08/24 11/09/24 11/10/24 11/11/24 23:59 23:59 23:59 23:59 Intake Total 1000 1340 3540 350 Output Total 2450 1150 Balance 1000 -1110 2390 350 Meds/Results Medications: Active Medications Generic Name Dose Route Start Last Admin Trade Name Freq PRN Reason Stop Dose Admin Acetaminophen 650 mg 11/09/24 03:57 Acetaminophen 325 Mg Tablet PO Q4H PRN Mild Pain (1-3) or Fever Folic Acid 1 mg 11/09/24 03:00 11/11/24 08:54 Folic Acid 1 Mg/0.2 Ml Inj IV PUSH 1 mg DAILY NUHA Administration Hydromorphone HCl 1 mg 11/09/24 07:51 11/11/24 11:37 Hydromorphone Hcl Inj (*Crx) 1 Mg/Ml Syr IV PUSH 1 mg Q3H PRN Administration Pain Rated 7-10 if NPO Ciprofloxacin/Dextrose 200 mls @ 200 mls/hr 11/09/24 06:00 11/11/24 06:23 Cipro 400 Mg/D5w 200 Ml IVPB 200 mls/hr Q12H NUHA Administration Metronidazole 500 mg in 100 mls @ 100 mls/hr 11/09/24 11:00 11/11/24 06:24 Flagyl 500 Mg/Iso Soln 100 Ml IVPB 100 mls/hr Q8HR NUHA Administration Lactated Ringer's 1,000 mls @ 30 mls/hr 11/09/24 14:30 11/10/24 18:36 Lr - Lactated Ringers Iv IV CONT Not Given .Q24H NUHA Nicotine Polacrilex 4 mg 11/09/24 18:47 11/10/24 18:19 Nicotine (*Pbkc) 4 Mg Gum PO 4 mg PRN PRN Administration Nicotine Cravings Ondansetron HCl 4 mg 11/09/24 03:57 11/10/24 15:40 Ondansetron Inj 4 Mg/2 Ml Vial IV PUSH 4 mg Q4H PRN Administration Nausea Oxycodone HCl 7.5 mg 11/11/24 10:32 Oxycodone Hcl (*Crx) 2.5 Mg Tab Ir PO Q4H PRN Pain Rated 7-10 Radiology Results: ITS Impressions Abdomen/Pelvis CT 11/09/24 08:26 IMPRESSION: 1. Subcutaneous mass in the superior aspect of the intergluteal cleft, consistent with phlegmon versus early abscess. Labs Labs: Laboratory Results - last 24 hr 11/11/24 06:08 WBC 11.9 H RBC 4.56 L Hgb 13.2 L Hct 42.2 MCV 92.5 MCH 28.9 MCHC 31.3 L RDW 12.0 Plt Count 253 MPV 10.8 H Immature Gran % (Auto) 0.8 H Neut % (Auto) 67.6 Lymph % (Auto) 23.3 [place] % (Auto) 7.0 Eos % (Auto) 0.6 Baso % (Auto) 0.7 Lymph # (Auto) 2.78 [place] # (Auto) 0.8 H Eos # (Auto) 0.1 Baso # (Auto) 0.1 Abs Immat Gran (auto) 0.10 H Absolute Neuts (auto) 8.1 H Absolute Nucleated RBC 0.000 Nucleated RBC % 0.0 Sodium 141 Potassium 4.1 Chloride 109 H Carbon Dioxide 25 Anion Gap 7 BUN 19 Creatinine 1.02 Estim Creat Clear Calc 120 Estimated GFR > 60 Glucose 103 Calcium 8.6 Total Bilirubin 0.1 L AST 25 ALT 26 Alkaline Phosphatase 88 Total Protein 7.0 Albumin 3.6 Quality VTE Prophylaxis VTE prophylaxis: mechanical ordered
[2024-11-11] MEDS: oxyCODONE HCL (*CRX) 2.5 MG TAB IR 7.5 MG PO ×3 (14:14→22:32)
[2024-11-11 17:37] VITALS: BP 116/64; PULSE 87; RESP 18; TEMP 36.4; O2SAT 99
[2024-11-11 21:05] VITALS: O2SAT 97
[2024-11-11] MEDS: NICOTINE (*PBKC) 4 MG GUM PO (22:32)
[2024-11-11 22:38] VITALS: BP 118/72; PULSE 80; RESP 18; TEMP 36.8; O2SAT 97
[2024-11-12] MEDS: CIPROFLOXACIN 400 MG/D5W 200ML 200 ML 200 MG IVPB (05:55)
[2024-11-12 06:35] LABS: Hematocrit 42.7 % (42.0-52.0); Hemoglobin 13.5 g/dL (14.0-18.0); Immature Granulocyte Percent A 1.4 % (0-0.5); Lymphocytes Absolute Auto 2.94 K/mm3 (0.9-3.2); Mean Corpuscular HGB Conc 31.6 g/dl (32-36); Mean Corpuscular Hemoglobin 28.7 pg (26-34); Mean Corpuscular Volume 90.9 fl (80-100); Nucleated Red Blood Cells Absolute Auto 0.000 K/mm3 (0.0-0.012); Nucleated Red Blood Cells Perc 0.0 % (0.0-0.2); Platelet Count Result 250 k/mm3 (150-375); Red Blood Count 4.70 M/mm3 (4.6-6.20); White Blood Count 9.8 K/mm3 (4.5-10.0)
[2024-11-12 06:58] LABS: Alanine Aminotransferase 32 U/L (6-50); Albumin Level 3.6 g/dL (3.5-5.1); Alkaline Phosphatase 80 U/L (38-126); Anion Gap 7 mmol/L (4-12); Aspartate Amino Transferase 29 U/L (17-59); Bilirubin,Total 0.1 mg/dL (0.2-1.3); Blood Urea Nitrogen 15 mg/dL (9-20); Calcium 8.4 mg/dL (8.4-10.2); Carbon Dioxide 25 mmol/L (22-30); Chloride 104 mmol/L (98-107); Estimated CRCL calculation 118 ml/min; Estimated Glomerular Filt Rate > 60; Glucose 122 mg/dL (65-110); Potassium 4.0 mmol/L (3.4-5.0); Sodium 136 mmol/L (137-145); Total Protein 6.9 g/dL (6.3-8.2)
[2024-11-12] MEDS: metroNIDAZOLE 500 MG/ISO 100ML 500 MG/100 ML BAG 100 MG IVPB (06:58)
--- NOTE | 2024-11-12 07:16 | P.PNIM_ITS ---
Progress Note: A&P Assessment and Plan (1) Sepsis: Code(s): A41.9 - Sepsis, unspecified organism Status: Acute Assessment and Plan: * Meets SIRS criteria: Fever, tachycardia, suspected infection, leukocytosis * lactic acid: 1.1 * suspected source: Pilonidal cyst/abscess * blood cultures drawn on 11/08, pending * UA: Not indicative of infection * Urine culture not obtained * Abdomen/pelvis CT: A subcutaneous mass in the superior aspect of the intergluteal cleft, consistent with phlegmon versus early abscess * Initially started on ciprofloxacin and metronidazole, also was started on vancomycin but discontinued * Continue IV antibiotics * discuss with ID pharmacist regarding discharge medications * 11/11: WBC 16.9 -> 11.9 * Wound culture - gram + * Blood cultures NGTD (2) Pilonidal cyst with abscess: Code(s): L05.01 - Pilonidal cyst with abscess Status: Acute Assessment and Plan: * See above * Started on Tuesday 11/07 after bumped it several times on various surroundings * Abdomen/pelvis CT: A subcutaneous mass in the superior aspect of the intergluteal cleft, consistent with phlegmon versus early abscess * Difficult to examine given patient's inability to allow for proper examination * Unable to tolerate bedside I and D in the emergency department * General surgery consulted * POD 11/09 I&D pilonidal cyst abscess * Keep dressing clean, dry * Packing changed daily * Will need possible home health nurse for dressing changes at home Subjective Date/time seen: 11/12/24 07:16 Interval history: 29 year old male with a past medical history of pulmonary embolism who presents to the hospital for inflammation the gluteal cleft. Patient states Wednesday of this week, he started experiencing pain with palpation, swelling and redness to the upper aspect of gluteal cleft. 11/12/2024 Patient sitting uncomfortably in bed at time of exam. POD 11/09 pilonidal abscess drainage. Review of Systems Review of Systems: All systems reviewed & are unremarkable except as noted in HPI and below Exam Narrative: Gen - ill appearing male in no acute respiratory distress who is nontoxic- appearing lying semi recumbent in bed HEENT - normocephalic. Atraumatic. Pupils equal round and reactive. Extraocular motions intact. Sclera clear and anicteric. Nares patent. Oropharynx was clear. No facial asymmetry. Neck - neck was supple. No dominant adenopathy, thyromegaly or masses. Chest - lungs are clear to auscultation bilaterally. No wheezes or crackles. CV - heart was regular rate and rhythm. S1-S2. No murmurs gallops or rubs. Abd - abdomen was soft. Nontender. Nondistended. Positive bowel sounds. No organomegaly or masses. Ext - no clubbing, cyanosis or edema. 2+ DP pulses bilaterally. Neuro - patient is alert and oriented x4. Strength is 5/5 in both upper and lower extremities. Cranial nerves 2-12 are intact. Speech is clear. Psych - normal mood and affect. Patient is pleasant and cooperative. Skin - Large abscess in pilonidal region drained, dressing clean and dry, still very tender to palpation. Packing in place with minimal induration or erythema Objective Data Vital Signs Vital Signs: Vital Signs - 24 hr 11/11/24 08:00 11/11/24 17:37 11/11/24 21:05 Temperature 97.6 F Pulse Rate 87 Respiratory Rate 18 Blood Pressure 116/64 Pulse Oximetry 99 97 Oxygen Delivery Room Air Room Air 11/11/24 22:38 Temperature 98.3 F Pulse Rate 80 Respiratory Rate 18 Blood Pressure 118/72 Pulse Oximetry 97 Oxygen Delivery Intake/Output Intake/Output: Intake & Output 11/09/24 11/10/24 11/11/24 11/12/24 23:59 23:59 23:59 23:59 Intake Total 1340 3540 1980 200 Output Total 2450 1150 Balance -1110 2390 1980 200 Meds/Results Medications: Active Medications Generic Name Dose Route Start Last Admin Trade Name Freq PRN Reason Stop Dose Admin Acetaminophen 650 mg 11/09/24 03:57 Acetaminophen 325 Mg Tablet PO Q4H PRN Mild Pain (1-3) or Fever Folic Acid 1 mg 11/09/24 03:00 11/11/24 08:54 Folic Acid 1 Mg/0.2 Ml Inj IV PUSH 1 mg DAILY NUHA Administration Hydromorphone HCl 1 mg 11/09/24 07:51 11/11/24 21:05 Hydromorphone Hcl Inj (*Crx) 1 Mg/Ml Syr IV PUSH 1 mg Q3H PRN Administration Pain Rated 7-10 if NPO Ciprofloxacin/Dextrose 200 mls @ 200 mls/hr 11/09/24 06:00 11/12/24 06:55 Cipro 400 Mg/D5w 200 Ml IVPB Infused Q12H NUHA Infusion Metronidazole 500 mg in 100 mls @ 100 mls/hr 11/09/24 11:00 11/12/24 06:58 Flagyl 500 Mg/Iso Soln 100 Ml IVPB 100 mls/hr Q8HR NUHA Administration Lactated Ringer's 1,000 mls @ 30 mls/hr 11/09/24 14:30 11/11/24 15:50 Lr - Lactated Ringers Iv IV CONT Not Given .Q24H NUHA Nicotine Polacrilex 4 mg 11/09/24 18:47 11/11/24 22:32 Nicotine (*Pbkc) 4 Mg Gum PO 4 mg PRN PRN Administration Nicotine Cravings Ondansetron HCl 4 mg 11/09/24 03:57 11/10/24 15:40 Ondansetron Inj 4 Mg/2 Ml Vial IV PUSH 4 mg Q4H PRN Administration Nausea Oxycodone HCl 7.5 mg 11/11/24 10:32 11/11/24 22:32 Oxycodone Hcl (*Crx) 2.5 Mg Tab Ir PO 7.5 mg Q4H PRN Administration Pain Rated 7-10 Radiology Results: ITS Impressions Abdomen/Pelvis CT 11/09/24 08:26 IMPRESSION: 1. Subcutaneous mass in the superior aspect of the intergluteal cleft, consistent with phlegmon versus early abscess. Labs Labs: Laboratory Results - last 24 hr 11/12/24 06:19 WBC 9.8 RBC 4.70 Hgb 13.5 L Hct 42.7 MCV 90.9 MCH 28.7 MCHC 31.6 L RDW 12.0 Plt Count 250 MPV 10.4 Immature Gran % (Auto) 1.4 H Neut % (Auto) 57.8 Lymph % (Auto) 30.2 [place] % (Auto) 6.2 Eos % (Auto) 3.2 Baso % (Auto) 1.2 Lymph # (Auto) 2.94 [place] # (Auto) 0.6 Eos # (Auto) 0.3 Baso # (Auto) 0.1 Abs Immat Gran (auto) 0.14 H Absolute Neuts (auto) 5.6 Absolute Nucleated RBC 0.000 Nucleated RBC % 0.0 Sodium 136 L Potassium 4.0 Chloride 104 Carbon Dioxide 25 Anion Gap 7 BUN 15 Creatinine 1.04 Estim Creat Clear Calc 118 Estimated GFR > 60 Glucose 122 H Calcium 8.4 Total Bilirubin 0.1 L AST 29 ALT 32 Alkaline Phosphatase 80 Total Protein 6.9 Albumin 3.6 Quality VTE Prophylaxis VTE prophylaxis: mechanical ordered
[2024-11-12 07:21] VITALS: BP 140/98; PULSE 77; RESP 20; TEMP 36.8; O2SAT 96
[2024-11-12] MEDS: FOLIC ACID 1 MG/0.2 ML INJ IV PUSH (09:20)
[2024-11-12] MEDS: NICOTINE (*PBKC) 4 MG GUM PO (10:02)
[2024-11-12] MEDS: oxyCODONE HCL (*CRX) 2.5 MG TAB IR 7.5 MG PO (11:28)
--- NOTE | 2024-11-12 11:38 | P.PNGS_ITS ---
Progress Note: A&P Assessment and Plan (1) Pilonidal cyst with abscess: Code(s): L05.01 - Pilonidal cyst with abscess Status: Acute Assessment and Plan: * Okay to discharge home today. Patient will have to call office tomorrow to see if packing can be changed by office staff or Dr. Segovia. Will need to continue daily packing changes for at least a few more days. Patient's insurance will not pay for home health therefore will either arrange office packing changes or wound care clinic as outpatient. Subjective Subjective Date/Time Seen: 11/12/24 11:38 Interval history: Patient wanting to go home today. Tolerating packing changes here in hospital but arranging packing changes at home will be difficult. Patient adamant about going home today. Exam Back/Spine/Pelvis: Other: Pilonidal abscess cavity healing well. Packing changed at bedside, no purulence drainage or surrounding erythema. Objective Data Vital Signs Vital Signs: Vital Signs - 24 hr 11/11/24 17:37 11/11/24 21:05 11/11/24 22:38 Temperature 97.6 F 98.3 F Pulse Rate 87 80 Respiratory Rate 18 18 Blood Pressure 116/64 118/72 Pulse Oximetry 99 97 97 Oxygen Delivery Room Air 11/12/24 07:21 11/12/24 09:45 Temperature 98.2 F Pulse Rate 77 Respiratory Rate 20 Blood Pressure 140/98 H Pulse Oximetry 96 Oxygen Delivery Room Air Intake/Output Intake/Output: Intake & Output 11/09/24 11/10/24 11/11/24 11/12/24 23:59 23:59 23:59 23:59 Intake Total 1340 3540 1980 200 Output Total 2450 1150 Balance -1110 2390 1980 200 Meds/Results Medications: Active Medications Generic Name Dose Route Start Last Admin Trade Name Freq PRN Reason Stop Dose Admin Acetaminophen 650 mg 11/09/24 03:57 Acetaminophen 325 Mg Tablet PO Q4H PRN Mild Pain (1-3) or Fever Amoxicillin/Clavulanate Potassium 1 tablet 11/12/24 09:00 11/12/24 09:20 Amoxicillin/Clavulanate K 875-125 Mg Tab PO 1 tablet Q12HR NUHA Administration Folic Acid 1 mg 11/09/24 03:00 11/12/24 09:20 Folic Acid 1 Mg/0.2 Ml Inj IV PUSH 1 mg DAILY NUHA Administration Hydromorphone HCl 1 mg 11/09/24 07:51 11/11/24 21:05 Hydromorphone Hcl Inj (*Crx) 1 Mg/Ml Syr IV PUSH 1 mg Q3H PRN Administration Pain Rated 7-10 if NPO Lactated Ringer's 1,000 mls @ 30 mls/hr 11/09/24 14:30 11/11/24 15:50 Lr - Lactated Ringers Iv IV CONT Not Given .Q24H NUHA Nicotine Polacrilex 4 mg 11/09/24 18:47 11/12/24 10:02 Nicotine (*Pbkc) 4 Mg Gum PO 4 mg PRN PRN Administration Nicotine Cravings Ondansetron HCl 4 mg 11/09/24 03:57 11/10/24 15:40 Ondansetron Inj 4 Mg/2 Ml Vial IV PUSH 4 mg Q4H PRN Administration Nausea Oxycodone HCl 7.5 mg 11/11/24 10:32 11/12/24 11:28 Oxycodone Hcl (*Crx) 2.5 Mg Tab Ir PO 7.5 mg Q4H PRN Administration Pain Rated 7-10 Radiology Results: ITS Impressions Abdomen/Pelvis CT 11/09/24 08:26 IMPRESSION: 1. Subcutaneous mass in the superior aspect of the intergluteal cleft, consistent with phlegmon versus early abscess. Labs Labs: Laboratory Results - last 24 hr 11/12/24 06:19 WBC 9.8 RBC 4.70 Hgb 13.5 L Hct 42.7 MCV 90.9 MCH 28.7 MCHC 31.6 L RDW 12.0 Plt Count 250 MPV 10.4 Immature Gran % (Auto) 1.4 H Neut % (Auto) 57.8 Lymph % (Auto) 30.2 [place] % (Auto) 6.2 Eos % (Auto) 3.2 Baso % (Auto) 1.2 Lymph # (Auto) 2.94 [place] # (Auto) 0.6 Eos # (Auto) 0.3 Baso # (Auto) 0.1 Abs Immat Gran (auto) 0.14 H Absolute Neuts (auto) 5.6 Absolute Nucleated RBC 0.000 Nucleated RBC % 0.0 Sodium 136 L Potassium 4.0 Chloride 104 Carbon Dioxide 25 Anion Gap 7 BUN 15 Creatinine 1.04 Estim Creat Clear Calc 118 Estimated GFR > 60 Glucose 122 H Calcium 8.4 Total Bilirubin 0.1 L AST 29 ALT 32 Alkaline Phosphatase 80 Total Protein 6.9 Albumin 3.6
--- NOTE | 2024-11-12 12:47 | P.DS_ITS ---
DS: Admitting Diagnosis Discharge Date 11/12/24 Admitting Diagnosis Pilonidal cyst DS: Discharge Diagnosis Discharge Diagnosis (1) Sepsis: Code(s): A41.9 - Sepsis, unspecified organism Status: Acute Assessment and Plan: * Meets SIRS criteria: Fever, tachycardia, suspected infection, leukocytosis * lactic acid: 1.1 * suspected source: Pilonidal cyst/abscess * blood cultures drawn on 11/08, pending * UA: Not indicative of infection * Urine culture not obtained * Abdomen/pelvis CT: A subcutaneous mass in the superior aspect of the intergluteal cleft, consistent with phlegmon versus early abscess * Initially started on ciprofloxacin and metronidazole, also was started on vancomycin but discontinued * Continue IV antibiotics * discuss with ID pharmacist regarding discharge medications * 11/11: WBC 16.9 -> 11.9 * Wound culture - gram + * Blood cultures NGTD (2) Pilonidal cyst with abscess: Code(s): L05.01 - Pilonidal cyst with abscess Status: Acute Assessment and Plan: * See above * Started on Tuesday 11/07 after bumped it several times on various surroundings * Abdomen/pelvis CT: A subcutaneous mass in the superior aspect of the inte rgluteal cleft, consistent with phlegmon versus early abscess * Difficult to examine given patient's inability to allow for proper examination * Unable to tolerate bedside I and D in the emergency department * General surgery consulted * POD 11/09 I&D pilonidal cyst abscess * Keep dressing clean, dry * Packing changed daily * Will need possible home health nurse for dressing changes at home DS: Summary Hospital Course Reason for hospitalization: Wound/Laceration Hospital Course: Pratik Delgado is a 29 year old male with a past medical history of pulmonary embolism who presents to the hospital for inflammation the gluteal cleft. Patient states Wednesday of this week, he started experiencing pain with palpation, swelling and redness to the upper aspect of gluteal cleft. He denies any major injuries to this region, but states that he has bumped it quite a few times over the past week. Denies any history of pilonidal cysts. Denies any fevers, chills, nausea/vomiting, chest pain, shortness a breath, abdominal pain, or urinary/bowel changes, however he does state that he feels warm but never took his temperature at home. Upon arrival to ED, patient was febrile and tachycardic but since admission, has not had an documented fevers or ta chycardia. He also denies any numbness/tingling down either lower extremity, urinary/bowel incontinence or saddle anesthesia. I&D was attempted in the emergency department unsuccessfully. General surgery consulted upon admission for pilonidal cyst/abscess. ED workup: 36.7C, 149 HR, 20RR, 130/79, 97% on RA WBC 18.5, HGB 13.8, HCT 41.7. No major electrolyte abnormalities. CRP 4.1 UA: Low suspicion for infection Abdomen/pelvis CT: Subcutaneous mass in the superior aspect of the intergluteal cleft, consistent with phlegmon versus early abscess. General surgery consulted regarding pilonidal cyst with abscess. He was taken for incision and drainage assist with abscess on 11/09. This patient was unable to talk I&D in the ER due to extreme levels of pain. Patient tolerated the procedure well, however he consistently complained of extreme levels of pain unit for the procedure. Continue to note minimal pain relief with Dilaudid and Vilas. His Vilas was switched to Percocet in states that this worked better for pain relief. Blood cultures were drawn and showed no growth to date. Wound culture was obtained. Leukocytosis continued to improve hospitalization, on 11/12, the WBC Had decreased to 9.8. Pt otherwise stable for discharge. General surgery saw him again on 11/12 - agree with discharge at this time and instructed him to follow up with the general surgery office to have wound changed and that he would need daily packing changes for atleast a few more days. Pt amenable to this plan. Status at Discharge Functional status at discharge: independent ambulation Overall status at discharge: patient is back to baseline Time Spent with Patient Time attestation: Total time spent providing and/or coordinating discharge services:30 Exam Narrative: Gen - ill appearing male in no acute respiratory distress who is nontoxic- appearing lying semi recumbent in bed HEENT - normocephalic. Atraumatic. Pupils equal round and reactive. Ex traocular motions intact. Sclera clear and anicteric. Nares patent. Oropharynx was clear. No facial asymmetry. Neck - neck was supple. No dominant adenopathy, thyromegaly or masses. Chest - lungs are clear to auscultation bilaterally. No wheezes or crackles. CV - heart was regular rate and rhythm. S1-S2. No murmurs gallops or rubs. Abd - abdomen was soft. Nontender. Nondistended. Positive bowel sounds. No organomegaly or masses. Ext - no clubbing, cyanosis or edema. 2+ DP pulses bilaterally. Neuro - patient is alert and oriented x4. Strength is 5/5 in both upper and lower extremities. Cranial nerves 2-12 are intact. Speech is clear. Psych - normal mood and affect. Patient is pleasant and cooperative. Skin - Large abscess in pilonidal region drained, dressing clean and dry, still very tender to palpation. Packing in place with minimal induration or erythema DS: Data Data Completed and Pending Labs on day of discharge: Labs from last 24 hours 11/12/24 06:19 WBC 9.8 RBC 4.70 Hgb 13.5 L Hct 42.7 MCV 90.9 MCH 28.7 MCHC 31.6 L RDW 12.0 Plt Count 250 MPV 10.4 Immature Gran % (Auto) 1.4 H Neut % (Auto) 57.8 Lymph % (Auto) 30.2 Gillespie % (Auto) 6.2 Eos % (Auto) 3.2 Baso % (Auto) 1.2 Lymph # (Auto) 2.94 Gillespie # (Auto) 0.6 Eos # (Auto) 0.3 Baso # (Auto) 0.1 Abs Immat Gran (auto) 0.14 H Absolute Neuts (auto) 5.6 Absolute Nucleated RBC 0.000 Nucleated RBC % 0.0 Sodium 136 L Potassium 4.0 Chloride 104 Carbon Dioxide 25 Anion Gap 7 BUN 15 Creatinine 1.04 Estim Creat Clear Calc 118 Estimated GFR > 60 Glucose 122 H Calcium 8.4 Total Bilirubin 0.1 L AST 29 ALT 32 Alkaline Phosphatase 80 Total Protein 6.9 Albumin 3.6 Preliminary micro results at discharge 11/09/24 15:23 Aerobic Culture - Preliminary Pilonidal Cyst 11/09/24 04:48 Blood Culture - Preliminary Blood 11/09/24 04:48 Blood Culture - Preliminary Blood Discharge Plan Discharge Attending physician on discharge: Alicia Price Consulting providers: Camilo Jansen; Jericho Riojas; Murray Segovia Discharging Clinician: Jericho Riojas Anticipated Discharge Date/Time: 11/12/24 12:41 Patient Disposition: Home Activity: no straining and other - see discharge instructions Diet: regular Wound Care Instructions: other - see discharge instructions Discharge Instructions: postoperative instructions * Okay to shower-- recommend removing bandage and packing prior to showering, replace packing and bandage after showers ( may remove packing and shower and then come to office or wound clinic for replacement of packing) * may drive, note will be given for remaining off work for 1 week, this may be extended as needed * Call office for increasing redness, swelling, foul-smelling drainage, or other problems with wound Discharge disposition: Home Take medications as prescribed Monitor blood pressures Take caution while standing, rising, or moving Change positions slowly taking a break between each position change If you standing feel dizzy sit back down and take a break Encouraged to continue with yearly vaccinations Return to the emergency department if he developed sudden shortness of breath, chest pain, nausea, vomiting, upset stomach or intractable diarrhea Return to the emergency department if you develop fever greater than 101.5 Follow-up with the primary care physician within 1-[address] [facility] for your healthcare needs Patient Instructions: Antibiotic Form Patient Language: British Stand Alone Forms: General Discharge Information, Work/School Release IP Follow-up/Referrals: Murray Segovia MD [Physician, General Surgery] - Call for Appointment Referral Note: Office opens at 8:00 a.m. on Wednesday morning. May call office to arrange a time for packing to be changed on Wednesday. Discharge Medications: New hydrocodone-acetaminophen 5-325 mg tablet 1 tablet PO Q4H PRN (Reason: pain) Qty: 10 0RF amoxicillin-pot clavulanate 875-125 mg tablet 1 tablet PO Q12H 7 Days Qty: 14 0RF Continued pantoprazole [Protonix] 40 mg tablet,delayed release (DR/EC) 40 mg PO HS 28 Days Qty: 28 0RF Date of admission: 11/09/24 03:52 Primary Care Provider: PHYSICIAN,INVESTMENT ACCOUNTING CLERK Admitting Provider: Jasmyne Agudelo Attending physician on admission: Jasmyne Agudelo Condition: Stable Quality VTE Prophylaxis VTE prophylaxis: mechanical ordered
== END 2024-11-12 13:05 | disposition home or self-care (01) | DRG 872 ==
LOC: ANHED 11-09 04:09 → ANH3MEDSUR 11-09 06:49
PROVIDERS: Surgery; Admitting Provider Internal Medicine; Emergency Provider Registered Nurse; Visit Provider Physician Assistant
PROC: 0J990ZX Drainage of Buttock Subcutaneous Tissue and Fascia, Open Approach, Diagnostic (ICD-10-PCS; principal; 2024-11-09 15:00)
DX: A41.9 Sepsis, unspecified organism (principal); L05.01 Pilonidal cyst with abscess; R11.0 Nausea; M54.89 Other dorsalgia; F17.210 Nicotine dependence, cigarettes, uncomplicated; F10.90 Alcohol use, unspecified, uncomplicated; F12.90 Cannabis use, unspecified, uncomplicated; Z53.09 Procedure and treatment not carried out because of other contraindication; Z86.711 Personal history of pulmonary embolism; V49.9XXS Car occupant (driver) (passenger) injured in unspecified traffic accident, sequela
CPT/HCPCS: 10060; 36415; 74177; 80053; 81003; 82077; 83605; 85025; 85610; 85730; 86140; 87040; 87070; 87075; 87205; 93005; 96374; 96376; 99285; A9270; J0744; J1100; J1171; J1836; J2003; J2004; J2250; J2270; J2405; J2704; J3411; J7030; J7120; Q9967